=== PATIENT | male | born 1945 | race Caucasian/White ===

== ENCOUNTER 2022-02-17 12:38 | Outpatient (CLI) | payer OTHER, SELFPAY ==
[2022-02-17 13:18] LABS: Prostate Specific AG Urology 3.81 ng/mL (0-4)
== END 2022-02-17 12:39 | disposition home or self-care (01) ==
LOC: LAB 12:41
PROVIDERS: PCP Family Medicine; Visit Provider Urology
DX: R97.20 Elevated prostate specific antigen [PSA] (principal)
CPT/HCPCS: 36415; 84153

== ENCOUNTER → 2022-02-21 09:19 | Outpatient (BNVA) | payer OTHER, SELFPAY | PROVIDERS: PCP Family Medicine; Visit Provider Urology | DX: R97.20 Elevated prostate specific antigen [PSA] (principal); R39.9 Unspecified symptoms and signs involving the genitourinary system | CPT/HCPCS: 51798; 99203 ==

== ENCOUNTER 2022-06-01 10:07 | Emergency (ER) | payer OTHER, SELFPAY ==
[2022-06-01 10:10] VITALS: BP 99/60; PULSE 95; RESP 16; TEMP 37.1; O2SAT 95; BMI 25.8
--- NOTE | 2022-06-01 10:16 | PC.PHAR ---
[facility]
--- NOTE | 2022-06-01 10:17 | XRR_ITS ---
PROCEDURE INFORMATION: Exam: XR Chest Exam date and time: 06/01/2022 10:22 AM Age: 77 years old Clinical indication: Cough TECHNIQUE: Imaging protocol: Radiologic exam of the chest. Views: 1 view. COMPARISON: No relevant prior studies available. FINDINGS: Lungs: There is some blunting of left costophrenic angle that may be due to small pleural effusion and adjacent subsegmental atelectasis. Remaining lung trujillo are clear. There are scattered tiny pulmonary nodules both lung trujillo likely long-standing secondary to old granulomatous disease. Pleural spaces: Pleural surfaces: Right pleural surface is unremarkable. Heart/Mediastinum: Unremarkable. No cardiomegaly. Bones/joints: Unremarkable for age. XR/XR chest 1V portable [id number] IMPRESSION: 1. Blunting left costophrenic angle as discussed above. Recommend a follow-up radiographs in 1-2 months for further assessment.
--- NOTE | 2022-06-01 10:20 | W.ED.ABDPA2 ---
HPI - Abdominal Pain General: Chief Complaint: Abdominal Pain Stated Complaint: gi bleed Time Seen by Provider: 06/01/22 10:10 Source: patient and EMS Mode of arrival: EMS Limitations: no limitations History of Present Illness: See nursing assessment. Patient was brought in by EMS from [facility] after patient complained of nausea and vomiting since last night that included some coffee-ground emesis. Patient states he has had epigastric abdominal discomfort for past 2 days. He states last night he started having nausea and vomiting and last couple episodes he had coffee-ground emesis. Patient states he had a fever to 101 yesterday. He has had a nonproductive cough occasionally. Denies any diarrhea. Denies any melena. He has only minimal discomfort in his epigastrium now. Denies any shortness of breath or chest pain. Patient denies any past medical problems. Medications include baby aspirin daily, vitamin D twice a day and Aleve once a day. Past surgical history includes appendectomy. Patient does use smokeless tobacco. Denies cigarette use. Denies alcohol use. Associated Symptoms: Reports coffee ground emesis, heartburn, nausea and vomiting (Coffee-ground emesis); Denies chills, constipation, hematochezia and melena Review of Systems Const: Reports: other (Fever yesterday but no fever today); Denies: chills Eyes: Denies: change in vision ENMT: Denies: throat pain Card: Denies: chest pain or palpitations Resp: Denies: dyspnea or wheezing GI: Reports: abdominal pain (Mild epigastric), nausea, vomiting (Coffee-ground emesis), coffee ground emesis and heartburn; Denies: dysphagia, constipation, hematochezia, melena or mucus in stool : Denies: flank pain Musc: Denies: neck pain or back pain Skin/Breast: Denies: rash or pruritus Neuro: Denies: headache(s) or numbness in extremities Psych: Denies: anxiety [place]/Lymph: Denies: enlarged lymph nodes PFSH ED PFSH: Medical History Elevated prostate specific antigen [PSA] Family History Mother , at age 84 Alzheimer disease Depression Father , at age 74 Acute leukemia Social History Smoking and tobacco status: current every day smoker smokeless tobacco Smokeless tobacco user: chewing tobacco Alcohol intake: never Adopted: No Lives independently: Yes Marital status: service: Yes Current occupational status: retired Previous occupational history: [employer] [place] History of recent travel: No Supplemental [facility] Information: History of appendectomy Physical Exam Const: COMMON NORMALS: no acute distress, patient oriented x3, no limitations and well nourished GENERAL APPEARANCE: cooperative HENMT: COMMON NORMALS: normocephalic and atraumatic HEAD & SCALP: normocephalic and atraumatic FACE & SINUS: normal facial exam Eye: COMMON NORMALS: EOMs intact bilaterally Neck/C-Spine: COMMON NORMALS: full ROM, no lymphadenopathy, supple and no meningeal signs GENERAL: Yes normal visual inspection Lymph: LYMPHATIC: no lymphadenopathy noted Chest: COMMONS NORMALS: normal inspection of the chest and normal palpation of entire chest wall CHEST: No Ecchymosis present and No rash Resp: COMMON NORMALS: normal respiratory effort, No retractions and clear to auscultation bilaterally EFFORT & INSPECTION: No respiratory distress AUSCULTATION: clear to auscultation bilaterally Cardio: COMMON NORMALS: regular rate, regular rhythm and Peripheral pulses 2+ throughout JUGULAR VENOUS DISTENTION: no JVD RATE: regular rate RHYTHM: regular rhythm PERIPHERAL PULSES: Peripheral pulses 2+ throughout GI: COMMON NORMALS: Soft to palpation, No hepatosplenomegaly present, no masses and no bruits PALPATION: Yes Soft to palpation and Yes No hepatosplenomegaly present OTHER: Mild epigastric abdominal pain. No masses palpated. : COMMON NORMALS: Yes no CVA tenderness BLADDER/KIDNEY EXAM: Yes no CVA tenderness Back/Pelvis: COMMON NORMALS: no CVA tenderness Extremity: COMMON NORMALS: normal to inspection, full ROM and capillary refill normal Neuro: COMMON NORMALS: patient oriented x3, CN's II-XII intact bilaterally, no focal motor deficits and no sensory deficits noted MENINGEAL SIGNS: Yes no meningeal signs Psych: COMMON NORMALS: mental status grossly normal and Normal thought process present THOUGHT PROCESS: Normal thought process present Skin: COMMON NORMALS: no rashes or lesions noted and no wounds GENERAL SKIN EXAM: no rashes or lesions noted Course Vital Signs: Vital signs: Vital Signs Temperature 98.7 F 06/01/22 10:10 Pulse Rate 95 06/01/22 10:10 Respiratory Rate 16 06/01/22 10:10 Blood Pressure 99/60 06/01/22 10:10 Pulse Oximetry 95 06/01/22 10:10 Oxygen Delivery Me thod 06/01/22 10:10 MDM - Abdominal Pain Medical Decision Making Likely superficial gastritis. Possible peptic ulcer disease. Possible viral gastroenteritis. Medical Records 1415: I reviewed findings with patient including CT scans and lab work. Offered admission for further work-up. Patient declined admission and wants to go home. He states he will follow-up with Dr. Heart as an outpatient who is on-call for general surgery and gastroenterology. He likely needs EGD to evaluate his stomach. Patient reexamined. Abdomen is soft and nontender. He states he has no pain at all. He denies any nausea at this time. Patient also likely has superficial gastritis. Lab Data 06/01/22 10:25 Labs/Radiology: Radiology Impressions Chest X-Ray 06/01/22 10:17 IMPRESSION: 1. Blunting left costophrenic angle as discussed above. Recommend a follow-up radiographs in 1-2 months for further assessment. Chest/Abdomen/Pelvis CT 06/01/22 11:14 IMPRESSION: 1. Mild scattered bronchiolitis both lung trujillo and minor atelectatic changes left lung base. 2. Evidence of old granulomatous disease. IMPRESSION: 1. Findings inconclusive for low-grade mid small bowel obstruction as discussed above. Follow-up as clinically indicated. 2. 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 3. Additional chronic findings as above. COMMENTS: Consistent with the [employer]'s Incidental Findings Committee white paper (J Am Jenny Radiol 2018): Any incidental renal lesion less than 1 cm or classified as too small to characterize, or any incidental cystic renal lesion characterized as simple-appearing, is likely benign. No follow-up imaging is recommended for these lesions per consensus recommendations based on imaging criteria. Laboratory Results WBC 22.0 10^3/uL (4.0-10.0) H 06/01/22 10:25 RBC 5.60 10^6/uL (4.1-5.3) H 06/01/22 10:25 Hgb 17.8 g/dL (11.7-16.6) H 06/01/22 10:25 Hct 53.6 % (42.0-52.0) H 06/01/22 10:25 MCV 95.7 fl (80-94) H 06/01/22 10:25 MCH 31.8 pg (28.0-34.0) 06/01/22 10:25 MCHC 33.2 g/dL (30.0-36.0) 06/01/22 10:25 RDW 13.4 % (12.1-15.1) 06/01/22 10:25 Plt Count 300 10^3/cmm (130-400) 06/01/22 10:25 MPV 10.7 fL (7.4-10.4) H 06/01/22 10:25 Neut % (Auto) 86.8 % 06/01/22 10:25 Lymph % (Auto) 6.5 % 06/01/22 10:25 Jerome % (Auto) 5.8 % 06/01/22 10:25 Eos % (Auto) 0.0 % 06/01/22 10:25 Baso % (Auto) 0.2 % 06/01/22 10:25 Neut # (Auto) 19.05 10^3/uL (1.8-7.7) H 06/01/22 10:25 Lymph # (Auto) 1.4 10^3/uL (0.8-4.8) 06/01/22 10:25 Jerome # (Auto) 1.3 10^3/uL (0.2-0.9) H 06/01/22 10:25 Eos # (Auto) 0.0 10^3/uL (0.0-0.8) 06/01/22 10:25 Baso # (Auto) 0.0 10^3/uL (0.0-0.1) 06/01/22 10:25 Nucleated RBC % (auto) 0 % 06/01/22 10:25 Nucleated RBCs # 0.0 /100WBC 06/01/22 10:25 Sodium 140 mmol/L (136-145) 06/01/22 10:25 Potassium 4.1 mmol/L (3.5-5.1) 06/01/22 10:25 Chloride 101 mmol/L (98-107) 06/01/22 10:25 Carbon Dioxide 26 mmol/L (22-29) 06/01/22 10:25 Anion Gap 17.1 (5-19) 06/01/22 10:25 BUN 27 mg/dL (8-23) H 06/01/22 10:25 Creatinine 1.0 mg/dL (0.7-1.2) 06/01/22 10:25 GFR Calculation Not Reportable 06/01/22 10:25 Glucose 118 mg/dL (65-115) H 06/01/22 10:25 Calculated Osmolality 296 mOsm/kg (285-295) H 06/01/22 10:25 Calcium 9.1 mg/dL (8.5-10.5) 06/01/22 10:25 Total Bilirubin 1.1 mg/dL (0.15-1.2) 06/01/22 10:25 AST 21 U/L (0-40) 06/01/22 10:25 ALT 20 U/L (0-41) 06/01/22 10:25 Alkaline Phosphatase 100 U/L (40-130) 06/01/22 10:25 Total Protein 7.0 g/dL (6.6-8.7) 06/01/22 10:25 Albumin 4.3 g/dL (3.5-5.2) 06/01/22 10:25 Globulin 2.7 g/dL (1.3-4.6) 06/01/22 10:25 Lipase 33 U/L (13-60) 06/01/22 10:25 Influenza Type A Ag negative (Negative) 06/01/22 10:40 Influenza Type B Ag negative (Negative) 06/01/22 10:40 SARS-CoV-2 Ag (Rapid) Negative (Negative) 06/01/22 10:40 Blood Type A Positive 06/01/22 10:25 Rho(D) Type Positive 06/01/22 10:25 Antibody Screen Negative 06/01/22 10:25 Imaging Data CXR: My impression: Trace pleural effusion on the left. Otherwise clear CT Abd/Pel: Radiologist's impression: ROCEDURE INFORMATION: Exam: CT Chest With Contrast; Diagnostic Exam date and time: 06/01/2022 1:09 PM Age: 77 years old Clinical indication: Nausea; Shortness of breath; Additional info: L pleural effusion; Hematemesis; Epigastric abd pain TECHNIQUE: Imaging protocol: Diagnostic computed tomography of the chest with contrast. Radiation optimization: All CT scans at this facility use at least one of these dose optimization techniques: automated exposure control; mA and/or kV adjustment per patient size (includes targeted exams where dose is matched to clinical indication); or iterative reconstruction. Contrast material: OMNI 350; Contrast volume: 100 ml; Contrast route: INTRAVENOUS (IV);? COMPARISON: CR XR chest 1V portable [id number] 06/01/2022 10:22 AM RADIATION DOSE METRICS: Total DLP (mGy-cm): 1039.62 FINDINGS: Lungs: There are some scattered indistinct peribronchial nodular opacities within the perihilar regions of both lung trujillo likely inflammatory in nature representing scattered bronchiolitis. There are mild hypoventilatory changes posteriorly at the lung bases and minor atelectatic changes left lung base. There are scattered calcified nodules both lung trujillo secondary to old granulomatous disease. Pleural spaces: Unremarkable. No pneumothorax. No pleural effusion. Heart: Heart is not enlarged. No significant coronary artery calcifications detected. No significant pericardial effusion. Lymph nodes: There are some scattered granulomatous calcifications within the mediastinum intermixed with small noncalcified lymph nodes likely benign by size criteria. Vasculature: Unremarkable. No aortic aneurysm.? Bones/joints: Mild degenerative changes lower thoracic spine otherwise bony thorax is unremarkable. Soft tissues: Unremarkable. PROCEDURE INFORMATION: Exam: CT Abdomen And Pelvis With Contrast Exam date and time: 06/01/2022 1:09 PM Age: 77 years old Clinical indication: Nausea; Shortness of breath; Additional info: L pleural effusion; Hematemesis; Epigastric abd pain TECHNIQUE: Imaging protocol: Computed tomography of the abdomen and pelvis with contrast. Radiation optimization: All CT scans at this facility use at least one of these dose optimization techniques: automated exposure control; mA and/or kV adjustment per patient size (includes targeted exams where dose is matched to clinical indication); or iterative reconstruction. Contrast material: OMNI 350; Contrast volume: 100 ml; Contrast route: INTRAVENOUS (IV);? COMPARISON: CR XR chest 1V portable [id number] 06/01/2022 10:22 AM RADIATION DOSE METRICS: Total DLP (mGy-cm): 1069.32 FINDINGS: Lungs: There are scattered granulomatous calcifications within the spleen longstanding otherwise spleen is unremarkable. Liver: Mild fatty infiltration throughout the liver. No masses or enlargement detected. Gallbladder and bile ducts: Normal. No calcified stones. No ductal dilation. Pancreas: Unremarkable. Main pancreatic duct is not significantly dilated. Spleen: Normal. No splenomegaly. Adrenal glands: Normal. No mass. Kidneys and ureters: Small renal cortical cysts too small to adequately characterize but statistically likely benign. Stomach and bowel: Large cluster of mildly distended fluid-filled small bowel loops within the left abdominal cavity without a transition point that may be transient in nature or secondary to localized ileus. Low-grade small bowel obstruction felt less likely. Appendix: No evidence of appendicitis. Intraperitoneal space: See Stomach and bowel finding. Vasculature: Abdominal aorta and iliac vessels are diffusely calcified. There is no aortic aneurysm. Lymph nodes: Subtle mesenteric fat stranding with multiple small mesenteric lymph nodes within the mid abdomen suggestive of mild mesenteric panniculitis which is often idiopathic, asymptomatic. Urinary bladder: Unremarkable as visualized. Reproductive: Prostate gland is mildly enlarged. Bones/joints: Mild degenerative changes throughout the lower thoracic and lumbar spine. Solitary small radiolucent bone lesion L3 likely representing incidental hemangioma. Soft tissues: Small bilateral fatty inguinal hernias larger on the left. CT/CT chest abd pel w con* IMPRESSION: 1. Mild scattered bronchiolitis both lung trujillo and minor atelectatic changes left lung base. 2. Evidence of old granulomatous disease. ? ? IMPRESSION: 1. Findings inconclusive for low-grade mid small bowel obstruction as discussed above. Follow-up as clinically indicated. 2. 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 3. Additional chronic findings as above. ? COMMENTS: Consistent with the [employer]'s Incidental Findings Committee white paper (J Am Jenny Radiol 2018): Any incidental renal lesion less than 1 cm or classified as too small to characterize, or any incidental cystic renal lesion characterized as simple-appearing, is likely benign. No follow-up imaging is recommended for these lesions per consensus recommendations based on imaging criteria. ? Dictated By: Tay Tavarez MD Signed By: Tay Tavarez MD Signed Date/Time: 06/01/22 3676 Discharge Plan Discharge Patient Disposition: Home Clinical Impression: Ileus, Nausea & vomiting Gastritis Qualifiers: Gastritis type: superficial Chronicity: acute Gastritis bleeding: with bleeding Qualified Code(s): K29.01 - Acute gastritis with bleeding Condition: Stable Prescriptions: New Carafate 1 gram tablet 1 g PO Q6H Qty: 20 2RF Rx Instructions: for stomach ondansetron 4 mg tablet,disintegrating 4 mg PO Q6H PRN (Reason: nausea and vomiting) Qty: 10 1RF Protonix 40 mg tablet,delayed release (DR/EC) 40 mg PO BID Qty: 20 1RF Rx Instructions: For stomach. No Action aspirin [Adult Aspirin Regimen] 81 mg tablet,delayed release (DR/EC) 81 mg PO QAM lisinopril-hydrochlorothiazide 20-12.5 mg Tablet 2 tab PO QAM triamcinolone acetonide 0.1 % Cream 1 applic TOPICAL BID PRN (Reason: Rash) Pepcid 20 mg Tablet 20 mg PO DAILY PRN (Reason: Heartburn) Aleve 220 mg Tablet 220 mg PO QAM Vitamin D3 50 mcg (2,000 unit) Capsule 4,000 unit PO QAM Discharge Orders: Discharge ED (Routine); Ordered 06/01/22 Ordered By: Juan Denton Referrals: Javon Heart DO [Physician] - 4-7 days (For evaluation of upper GI bleeding) Rebecca Taylor MD [Primary Care Provider] - 1-3 days Discharge Activity: Increase activity as tolerated Patient Instructions: Gastritis (ED), Gastrointestinal Bleeding (ED), Diet for Stomach Ulcers and Gastritis (ED), Acute Nausea and Vomiting (ED), Ileus (ED) Activity Restrictions/Additional Instructions: Follow-up with general surgeon next week for recheck and possible scheduling of endoscopy to check your stomach for possible ulcer. Your small bowel is not functioning normally. Therefore, liquid diet only for the next 24 to 36 hours. Advance diet as tolerated. You did have some inflammation in your mesentery. Therefore, if symptoms worsen you must return to emergency room for recheck. Discontinue Pepcid and Aleve. Take only Tylenol for discomfort. Take Protonix and Carafate for your stomach. Take Zofran as needed for nausea. Avoid ibuprofen or aspirin. Coding Level of Care Code ED Commercial Maintenance Technician for Chg Fwd History Comprehensive Exam Comprehensive Medical Decision Making High Complexity
[2022-06-01 10:31] LABS: Basophils % 0.2 %; Hematocrit 53.6 % (42.0-52.0); Hemoglobin 17.8 g/dL (11.7-16.6); Lymphocytes # 1.4 10^3/uL (0.8-4.8); Lymphocytes % 6.5 %; Mean Corpuscular HGB Conc 33.2 g/dL (30.0-36.0); Mean Corpuscular Hemoglobin 31.8 pg (28.0-34.0); Mean Corpuscular Volume 95.7 fl (80-94); Mean Platelet Volume 10.7 fL (7.4-10.4); Monocytes # 1.3 10^3/uL (0.2-0.9); Monocytes % 5.8 %; Neutrophils # 19.05 10^3/uL (1.8-7.7); Neutrophils % 86.8 %; Nucleated Red Blood Cells % 0 %; Platelet Count 300 10^3/cmm (130-400); Red Cell Distribution Width 13.4 % (12.1-15.1)
--- NOTE | 2022-06-01 10:43 | PC.PHAR ---
PT STATES HE TAKES CARE OF HIS OWN MEDICATIONS-PT STATES HE DIDNT TAKE ANY MEDICATIONS TODAY
[2022-06-01] MEDS: pantoprazole 40 MG in sodium chloride 0.9% (plus) 100 ML 20 MG IV (10:47)
[2022-06-01] MEDS: pantoprazole 40 mg SDV 80 MG IVP (10:47)
[2022-06-01 10:56] LABS: Alanine Aminotransferase 20 U/L (0-41); Albumin Level 4.3 g/dL (3.5-5.2); Alkaline Phosphatase 100 U/L (40-130); Anion Gap 17.1 (5-19); Aspartate Amino Transferase 21 U/L (0-40); Blood Urea Nitrogen 27 mg/dL (8-23); Calcium 9.1 mg/dL (8.5-10.5); Carbon Dioxide 26 mmol/L (22-29); Chloride 101 mmol/L (98-107); Globulin 2.7 g/dL (1.3-4.6); Glucose 118 mg/dL (65-115); Lipase 33 U/L (13-60); Osmolality Calculated 296 mOsm/kg (285-295); Potassium 4.1 mmol/L (3.5-5.1); Sodium 140 mmol/L (136-145); Total Bilirubin 1.1 mg/dL (0.15-1.2)
--- NOTE | 2022-06-01 11:14 | CTR_ITS ---
PROCEDURE INFORMATION: Exam: CT Chest With Contrast; Diagnostic Exam date and time: 06/01/2022 1:09 PM Age: 77 years old Clinical indication: Nausea; Shortness of breath; Additional info: L pleural effusion; Hematemesis; Epigastric abd pain TECHNIQUE: Imaging protocol: Diagnostic computed tomography of the chest with contrast. Radiation optimization: All CT scans at this facility use at least one of these dose optimization techniques: automated exposure control; mA and/or kV adjustment per patient size (includes targeted exams where dose is matched to clinical indication); or iterative reconstruction. Contrast material: OMNI 350; Contrast volume: 100 ml; Contrast route: INTRAVENOUS (IV); COMPARISON: CR XR chest 1V portable [id number] 06/01/2022 10:22 AM RADIATION DOSE METRICS: Total DLP (mGy-cm): 1039.62 FINDINGS: Lungs: There are some scattered indistinct peribronchial nodular opacities within the perihilar regions of both lung trujillo likely inflammatory in nature representing scattered bronchiolitis. There are mild hypoventilatory changes posteriorly at the lung bases and minor atelectatic changes left lung base. There are scattered calcified nodules both lung trujillo secondary to old granulomatous disease. Pleural spaces: Unremarkable. No pneumothorax. No pleural effusion. Heart: Heart is not enlarged. No significant coronary artery calcifications detected. No significant pericardial effusion. Lymph nodes: There are some scattered granulomatous calcifications within the mediastinum intermixed with small noncalcified lymph nodes likely benign by size criteria. Vasculature: Unremarkable. No aortic aneurysm. Bones/joints: Mild degenerative changes lower thoracic spine otherwise bony thorax is unremarkable. Soft tissues: Unremarkable. PROCEDURE INFORMATION: Exam: CT Abdomen And Pelvis With Contrast Exam date and time: 06/01/2022 1:09 PM Age: 77 years old Clinical indication: Nausea; Shortness of breath; Additional info: L pleural effusion; Hematemesis; Epigastric abd pain TECHNIQUE: Imaging protocol: Computed tomography of the abdomen and pelvis with contrast. Radiation optimization: All CT scans at this facility use at least one of these dose optimization techniques: automated exposure control; mA and/or kV adjustment per patient size (includes targeted exams where dose is matched to clinical indication); or iterative reconstruction. Contrast material: OMNI 350; Contrast volume: 100 ml; Contrast route: INTRAVENOUS (IV); COMPARISON: CR XR chest 1V portable [id number] 06/01/2022 10:22 AM RADIATION DOSE METRICS: Total DLP (mGy-cm): 1069.32 FINDINGS: Lungs: There are scattered granulomatous calcifications within the spleen longstanding otherwise spleen is unremarkable. Liver: Mild fatty infiltration throughout the liver. No masses or enlargement detected. Gallbladder and bile ducts: Normal. No calcified stones. No ductal dilation. Pancreas: Unremarkable. Main pancreatic duct is not significantly dilated. Spleen: Normal. No splenomegaly. Adrenal glands: Normal. No mass. Kidneys and ureters: Small renal cortical cysts too small to adequately characterize but statistically likely benign. Stomach and bowel: Large cluster of mildly distended fluid-filled small bowel loops within the left abdominal cavity without a transition point that may be transient in nature or secondary to localized ileus. Low-grade small bowel obstruction felt less likely. Appendix: No evidence of appendicitis. Intraperitoneal space: See Stomach and bowel finding. Vasculature: Abdominal aorta and iliac vessels are diffusely calcified. There is no aortic aneurysm. Lymph nodes: Subtle mesenteric fat stranding with multiple small mesenteric lymph nodes within the mid abdomen suggestive of mild mesenteric panniculitis which is often idiopathic, asymptomatic. Urinary bladder: Unremarkable as visualized. Reproductive: Prostate gland is mildly enlarged. Bones/joints: Mild degenerative changes throughout the lower thoracic and lumbar spine. Solitary small radiolucent bone lesion L3 likely representing incidental hemangioma. Soft tissues: Small bilateral fatty inguinal hernias larger on the left. CT/CT chest abd pel w con* IMPRESSION: 1. Mild scattered bronchiolitis both lung trujillo and minor atelectatic changes left lung base. 2. Evidence of old granulomatous disease. IMPRESSION: 1. Findings inconclusive for low-grade mid small bowel obstruction as discussed above. Follow-up as clinically indicated. 2. 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 3. Additional chronic findings as above. COMMENTS: Consistent with the [employer]'s Incidental Findings Committee white paper (J Am Jenny Radiol 2018): Any incidental renal lesion less than 1 cm or classified as too small to characterize, or any incidental cystic renal lesion characterized as simple-appearing, is likely benign. No follow-up imaging is recommended for these lesions per consensus recommendations based on imaging criteria.
[2022-06-01 11:30] LABS: Influenza A by IFA negative (Negative); Influenza B by IFA negative (Negative)
[2022-06-01 11:50] LABS: SARS Covid-2 Antigen Negative (Negative)
[2022-06-01 13:20] VITALS: BP 141/69; PULSE 77; RESP 14; O2SAT 96
[2022-06-01 14:00] VITALS: BP 104/61; PULSE 68; RESP 15; O2SAT 93
[2022-06-01 15:00] VITALS: BP 135/72; PULSE 72; RESP 15; O2SAT 94
== END 2022-06-01 15:00 | disposition home or self-care (01) ==
PROVIDERS: Emergency Provider Family Medicine; PCP Family Medicine
DX: K29.01 Acute gastritis with bleeding (principal); K56.7 Ileus, unspecified; Z79.82 Long term (current) use of aspirin; Z20.822 Contact with and (suspected) exposure to COVID-19; F17.220 Nicotine dependence, chewing tobacco, uncomplicated
CPT/HCPCS: 36415; 71045; 71260; 74177; 80053; 83690; 85025; 86850; 86900; 87040; 87426; 87804; 96365; 96366; 96375; 99285; C9113; Q9967

== ENCOUNTER → 2022-06-20 11:07 | Outpatient (BNVA) | payer MEDICARE, SELFPAY | PROVIDERS: PCP Family Medicine; Visit Provider Surgery | DX: K21.9 Gastro-esophageal reflux disease without esophagitis (principal); Z12.11 Encounter for screening for malignant neoplasm of colon | CPT/HCPCS: 99024; 99203 ==

== ENCOUNTER 2022-07-05 06:17 | Day surgery (SDC) | payer MEDICARE, OTHER, SELFPAY ==
[2022-07-04 09:36] VITALS: BMI 25.8
[2022-07-05 06:39] VITALS: BP 181/91; PULSE 65; RESP 18; TEMP 36.8; O2SAT 96
[2022-07-05] MEDS: sodium chloride 0.9% 1,000 ML 30 ML IV (06:51)
--- NOTE | 2022-07-05 07:10 | ANES.PREANE2 ---
Pre-Anesthetic Assessment Height/Weight: Height 1.78 m Weight 81.647 kg Temp Pulse Resp BP Pulse Ox O2 Del Method 98.3 F 65 18 181/91 96 07/05/22 06:39 07/05/22 06:39 07/05/22 06:39 07/05/22 06:39 07/05/22 06:39 07/05/22 06:39 Preop Diagnosis: screening/GERD Operation Date: 07/05/22 08:00 Proposed Procedures p 48962 egd, [id number] colon Z12.11,K21.9(Not Applicable) - DO robi Spence Colonoscopy(Not Applicable) - Javon Heart DO Familial anesthetic complications: none Was Beta Amy taken within 24 hours: N/A Was Clonidine taken within 24 hours: N/A Last intake: Intake Last Liquid Date 07/04/22 Last Liquid Time 22:00 Last Solid Date 07/03/22 Last Solid Time 18:00 Social Tobacco (chew) and No alcohol Exam alert, oriented x 3, clear to auscultation bilaterally and regular rate & rhythm Airway Submandibular: within normal limits Cervical ROM: within normal limits Mallampati: Class II Dentition: chipped and full Comments: Comments: several missing Pulmonary None reported CV/HEM Hypertension None reported Hepatic None reported GI Gastroesophageal Reflux Disease (controlled) Metabolic None reported Musc/skel Lower Back Pain and Osteoarthritis/DJD Neuropsych None reported Anesthetic Plan ASA status: 2 Anesthesia: MAC Risk of > 500 ml blood loss (7ml/kg in children): No Medications/Allergies Home Medications Medication Instructions Recorded Confirmed Last Taken Type cholecalciferol (vitamin D3) 50 4,000 unit PO QAM 06/01/22 07/04/22 07/04/22 History mcg (2,000 unit) capsule (Vitamin D3) lisinopril 20 2 tab PO QAM 06/01/22 07/04/22 07/04/22 History mg-hydrochlorothiazide 12.5 mg tablet ondansetron 4 mg disintegrating 4 mg PO Q6H PRN nausea and 06/01/22 07/04/22 Unknown Rx tablet vomiting #10 tabs sucralfate 1 gram tablet (Carafate) 1 g PO Q6H #20 tabs 06/01/22 07/04/22 07/04/22 Rx triamcinolone acetonide 0.1 % 1 applic topical BID PRN Rash 06/01/22 07/04/22 Unknown History topical cream hydrocortisone 2.5 % topical cream 1 applic NC QID 3 weeks #30 grams 07/05/22 Unknown Rx with perineal applicator (Anusol-HC) pantoprazole 40 mg tablet,delayed 40 mg PO BID 6 weeks #84 tabs 07/05/22 Unknown Rx release (Protonix) Allergies Allergy/AdvReac Type Severity Reaction Status Date / Time No Known Allergies Allergy Verified 07/04/22 09:31 Current Medications Generic Name Dose Route Start Last Admin Trade Name Freq PRN Reason Stop Dose Admin Sodium Chloride 1,000 mls @ 30 mls/hr 07/05/22 06:30 07/05/22 06:51 Sodium Chloride 0.9% IV 07/06/22 06:29 30 mls/hr .Q24H KARLEY Administration PFSH Anesthesia Medical History Elevated prostate specific antigen [PSA] Surgical History History of appendectomy Family History Mother , at age 84 Alzheimer disease Depression Father , at age 74 Acute leukemia Social History Smoking and tobacco status: current every day smoker smokeless tobacco Smokeless tobacco user: chewing tobacco Alcohol intake: never Adopted: No Lives independently: Yes Marital status: service: Yes Current occupational status: retired Previous occupational history: [employer] [place] History of recent travel: No Data Anesthesia Cardiac Studies: No Data to Display
--- NOTE | 2022-07-05 08:16 | W.PM.OPSUD ---
Surgery/Procedure H&P Update DATE OF PROCEDURE: July 05, 2022 DATE H&P PERFORMED: 06/20/22 PREOP DIAGNOSIS: screening/GERD PLANNED PROCEDURE: Operation Date: 07/05/22 08:00 Proposed Procedures p 05171 egd, [id number] colon Z12.11,K21.9(Not Applicable) - DO robi Spence Colonoscopy(Not Applicable) - Javon Heart DO
[2022-07-05 08:42] VITALS: BP 114/56; PULSE 57; RESP 16; TEMP 36.7; O2SAT 94
[2022-07-05 08:47] VITALS: BP 114/63; PULSE 52; RESP 16; O2SAT 97
[2022-07-05 08:57] VITALS: BP 125/82; PULSE 59; RESP 18; O2SAT 97
--- NOTE | 2022-07-05 13:47 | ANE.PACU2 ---
Inpatient post-anesthesia follow up: Airway intact: Yes Vital signs: Temperature 98.1 F Pulse Rate 59 Respiratory Rate 18 Blood Pressure 125/82 Pulse Oximetry 97 Oxygen Delivery Me thod Room Air Oxygen Flow Rate Fraction of Inspir ed Oxygen Hydration adequate: Yes Nausea and vomiting: No Pain level: 2 Mental status: Baseline
== END 2022-07-05 09:22 | disposition home or self-care (01) ==
PROVIDERS: PCP Family Medicine; Visit Provider Surgery
PROC: 0DJ08ZZ Inspection of Upper Intestinal Tract, Via Natural or Artificial Opening Endoscopic (ICD-10-PCS; CPT 43235; principal; 2022-07-05 08:00)
PROC: 0DJD8ZZ Inspection of Lower Intestinal Tract, Via Natural or Artificial Opening Endoscopic (ICD-10-PCS; CPT 45378; 2022-07-05 08:00)
DX: Z12.11 Encounter for screening for malignant neoplasm of colon (principal); K21.9 Gastro-esophageal reflux disease without esophagitis; K64.8 Other hemorrhoids; F17.220 Nicotine dependence, chewing tobacco, uncomplicated; K29.80 Duodenitis without bleeding; K29.50 Unspecified chronic gastritis without bleeding; B96.81 Helicobacter pylori [H. pylori] as the cause of diseases classified elsewhere
CPT/HCPCS: 43239; 45378; 88305; G0121; J2704; J7030

== ENCOUNTER → 2022-07-27 15:25 | Outpatient (BNVA) | payer MEDICARE, OTHER, SELFPAY | PROVIDERS: PCP Family Medicine; Visit Provider Surgery | DX: Z09 Encounter for follow-up examination after completed treatment for conditions other than malignant neoplasm (principal); K29.70 Gastritis, unspecified, without bleeding; B96.81 Helicobacter pylori [H. pylori] as the cause of diseases classified elsewhere; K64.8 Other hemorrhoids; K26.9 Duodenal ulcer, unspecified as acute or chronic, without hemorrhage or perforation | CPT/HCPCS: 99212 ==

== ENCOUNTER → 2022-08-10 17:28 | Outpatient (BNVA) | payer MEDICARE, OTHER, SELFPAY | PROVIDERS: PCP Family Medicine; Visit Provider Surgery | DX: Z09 Encounter for follow-up examination after completed treatment for conditions other than malignant neoplasm (principal); K29.70 Gastritis, unspecified, without bleeding; B96.81 Helicobacter pylori [H. pylori] as the cause of diseases classified elsewhere | CPT/HCPCS: 99212 ==

== ENCOUNTER 2022-08-25 07:27 | Observation (INO) | payer OTHER, SELFPAY ==
[2022-08-25] VITALS (10 sets, daily range): BP systolic 120–150; BP diastolic 61–90; PULSE 66–93; RESP 17–21; TEMP 36.6–36.7; O2SAT 91–99; BMI 26.1
--- NOTE | 2022-08-25 07:49 | PC.NURSE ---
pt reports to the ER with c/o coffee ground emesis and dark colored diarrhea x2 days. pt reports associated lightheadedness but denies dizziness or abdominal pain. speech is clear, respirations even and unlabored. lung sounds clear throughout. skin pink/warm/dry. cap refill is 3 seconds.
--- NOTE | 2022-08-25 07:53 | ECG_ITS ---
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 Measurements Intervals [place] Rate: 66 P: 21 MD: 218 QRS: -16 QRSD: 75 T: 123 QT: 382 QTc: 401 Interpretive Statements SINUS RHYTHM WITH SINUS ARRHYTHMIA WITH FIRST DEGREE AV BLOCK MODERATE T-WAVE ABNORMALITY, CONSIDER LATERAL ISCHEMIA [-0.1+ mV T-WAVE IN I/aVL/V5/V6] No previous ECG available for comparison Electronically Signed On 08-25-2022 15:12:35 [employer] SAL[employer]ENT by Abel Braden M.D. [id number]
--- NOTE | 2022-08-25 07:53 | XR_ITS ---
WS: [id number] Portable AP upright chest, 08/25/2022 Clinical Data: dyspnea/cough Comparison: Portable chest, 06/01/2022 Findings: No nodules, masses or effusions are seen. The heart is normal. The pulmonary vascularity is not increased. No pneumonia or pneumothorax is seen. The left costophrenic angle shows blunting prob ably from fibrotic change. The aortic arch and descending thoracic aorta show calcification and tortu osity. There are monitor leads on the chest wall. XR/XR chest 1V portable [id number] Impression: Atherosclerosis.
--- NOTE | 2022-08-25 07:53 | CT_ITS ---
WS: [id number] CT ABDOMEN PELVIS TECHNIQUE: Contrast-enhanced CT of the abdomen and pelvis with coronal and sagittal reformatted image s. CLINICAL INFORMATION: abd pain COMPARISON: CT June 01, 2022 DLP: 659.[address] scans at [facility] use at least one of these dose optimization techniques: automated e xposure control; mA and/or kV adjustment per patient size (includes targeted exams where dose is matc hed to clinical indication); or iterative reconstruction. FINDINGS: Mild diffuse fatty infiltration liver. Normal portal vein and splenic vein. Splenic granulomas. Small esophageal hiatal hernia. Fluid distended stomach with air-fluid level. Gastritis with duodenitis. B ibasilar atelectasis. Normal portal vein and splenic vein. Gallbladder appears normal. Normal pancrea tic parenchymal enhancement. Adrenal glands are normal. No hydronephrosis. Incidental bilateral renal cysts. Previously enhancing enlarged prostate measuring 4.8 cm. Normal sigmoid colon. A few air-flui d levels in normal caliber colon. Normal caliber abdominal aorta. Mild aortic calcification. Celiac and SMA are patent. Normal caliber fluid-filled loops of small bowel. No evidence of small or large bowel obstruction. Small bowel diste ntion improved compared to June 01, 2022. Enlarged lymph nodes in the central mesentery compatibl e with mesenteric panniculitis with mild adore mesentery unchanged. CT/CT abdomen pelvis w con* [id number] IMPRESSION: 1. No evidence of high-grade small or large bowel obstruction. 2. Fluid-filled enhancing small bowel bowel loops without evidence of obstruct ion. Small bowel loops are less distended compared to June 01, 2022. Recomm end correlation for small bowel enteritis 3. Colon is normal caliber with scattered fluid and air-fluid levels in the tr ansverse colon. 4. Enlarged prostate measuring 4.8 cm. Recommend correlation PSA. 5. Small esophageal hiatal hernia. 6. Fluid distended stomach with air-fluid levels with submucosal enhancement c ompatible with gastritis and duodenitis. 7. Stable previously described mesenteric panniculitis.
--- NOTE | 2022-08-25 07:53 | ED_ITS ---
HPI - Nausea/Vomiting/Diarrhea General: Chief complaint: Nausea/Vomiting/Diarrhea Stated complaint: Rectal bleeding Time Seen by Provider: 08/25/22 07:30 Source: patient Mode of arrival: ambulatory History of Present Illness: 77-year-old male presents emergency room with complaints of hematemesis and black tarry stools over the last couple of days. May 2022 was admitted for GI bleed, the following month had an EGD and col onoscopy is found to have H. pylori when endoscopy was completed.. MD elicited complaint: nausea and vomiting Pertinent past history: other Onset (ago): day(s) (1) Description of diarrhea: black tarry Associated nausea: Yes Associated abdominal pain: Yes Location of pain: Epigastric Pain consistency: constant Severity: moderate Quality: cramping Exacerbating factors: none Relieving factors: none Associated symtoms: Reports nausea and weakness; Denies anxiety, bloating, change in vision, chest pain, cough, diaphoresis, decreased urine output, dizziness, dysuria, epistaxis, fatigue, fecal incontinence, fevers/chills, headache(s), anorexia, malaise, myalgias, numbness, palpitations, rash, short of breath, syncope, tenesmus or tinnitus Review of Systems Const: Denies: fever(s), chills, fatigue, malaise or diaphoresis Eyes: Denies: change in vision ENMT: Denies: tinnitus or epistaxis Card: Denies: chest pain, palpitations or syncope Resp: Denies: dyspnea, productive cough or non-productive cough GI: Reports: abdominal pain, nausea, vomiting, coffee ground emesis and melena; Denies: bloating or fecal incontinence : Denies: dysuria, urinary frequency or urinary urgency Skin/Breast: Denies: rash or pruritus Neuro: Denies: headache(s) or dizziness Psych: Denies: anxiety PFSH ED PFSH: Medical History (Updated 08/29/22 @ 05:53 by Yfn Contreras DO) Duodenal ulcer Elevated prostate specific antigen [PSA] GERD (gastroesophageal reflux disease) Hypertension Internal hemorrhoids Lower urinary tract symptoms (LUTS) Surgical History History of appendectomy Family History Mother , at age 84 Alzheimer disease Depression Father , at age 74 Acute leukemia Social History Smoking and tobacco status: current every day smoker smokeless tobacco Smokeless tobacco user: chewing tobacco Alcohol intake: never Adopted: No Lives independently: Yes Marital status: service: Yes Current occupational status: retired Previous [place] [employer] [place] Physical Exam Const: GENERAL APPEARANCE: cooperative and comfortable ORIENTATION/CONSCIOUSNESS: Yes awake, Yes oriented to person, Yes oriented to place and Yes oriented to time HENMT: COMMON NORMALS: normocephalic, atraumatic and hearing grossly normal bilaterally HEAD & SCALP: normocephalic and atraumatic Resp: COMMON NORMALS: normal respiratory effort, No retractions, No use of accessory muscles and clear to auscultation bilaterally AUSCULTATION: clear to auscultation bilaterally Cardio: COMMON NORMALS: regular rate, regular rhythm and No murmurs present (Cardio) RATE: regular rate RHYTHM: regular rhythm GI: COMMON NORMALS: Soft to palpation and No hepatosplenomegaly present AUSCULTATION: Yes normoactive bowel sounds PALPATION: Yes Soft to palpation, No Tenderness to palpation present (GI), No Guarding due to palpation present (GI) and Yes No hepatosplenomegaly present OTHER: Rectal exam shows blood-tinged stool markedly Hemoccult positive on testing Extremity: COMMON NORMALS: normal to inspection, capillary refill normal, no clubbing, cyanosis or edema, no calf tenderness and no pedal edema Neuro: SENSORIUM/ORIENTATION: Yes oriented to person, Yes oriented to place and Yes oriented to time Skin: COMMON NORMALS: no rashes or lesions noted GENERAL SKIN EXAM: no rashes or lesions noted Course Vital Signs: Vital signs: Vital Signs Temperature 98.4 F 08/26/22 11:21 Pulse Rate 59 L 08/26/22 11:21 Respiratory Rate 16 08/26/22 11:21 Blood Pressure 109/63 08/26/22 11:21 Pulse Oximetry 93 08/26/22 11:21 Oxygen Delivery Me thod 08/26/22 07:40 MDM - Nausea/Vomiting/Diarrhea Medical Decision Making Given his history we will place patient on observation. His hemoglobin is stable but he states he has been passing blood for several days now. Monitor his hemoglobins started on PPIs. Discussed with hospitalist observation orders written Medical Records I reviewed the patient's medical records. Lab Data I reviewed the patient's lab results. 08/25/22 08:03 08/25/22 08:03 Radiology Impressions Abdomen/Pelvis CT 08/25/22 07:53 IMPRESSION: 1. No evidence of high-grade small or large bowel obstruction. 2. Fluid-filled enhancing small bowel bowel loops without evidence of obstruction. Small bowel loops are less distended compared to June 01, 2022. Recommend correlation for small bowel enteritis 3. Colon is normal caliber with scattered fluid and air-fluid levels in the transverse colon. 4. Enlarged prostate measuring 4.8 cm. Recommend correlation PSA. 5. Small esophageal hiatal hernia. 6. Fluid distended stomach with air-fluid levels with submucosal enhancement compatible with gastritis and duodenitis. 7. Stable previously described mesenteric panniculitis. Chest X-Ray 08/25/22 07:53 Impression: Atherosclerosis. Laboratory Results WBC 10.4 10^3/uL (4.0-10.0) H 08/25/22 08:03 RBC 5.72 10^6/uL (4.1-5.3) H 08/25/22 08:03 Hgb 17.7 g/dL (11.7-16.6) H 08/25/22 08:03 Hct 54.0 % (42.0-52.0) H 08/25/22 08:03 MCV 94.4 fl (80-94) H 08/25/22 08:03 MCH 30.9 pg (28.0-34.0) 08/25/22 08:03 MCHC 32.8 g/dL (30.0-36.0) 08/25/22 08:03 RDW 12.9 % (12.1-15.1) 08/25/22 08:03 Plt Count 324 10^3/cmm (130-400) 08/25/22 08:03 MPV 10.1 fL (7.4-10.4) 08/25/22 08:03 Neut % (Auto) 78.8 % 08/25/22 08:03 Lymph % (Auto) 12.7 % 08/25/22 08:03 [place] % (Auto) 6.7 % 08/25/22 08:03 Eos % (Auto) 0.5 % 08/25/22 08:03 Baso % (Auto) 0.4 % 08/25/22 08:03 Neut # (Auto) 8.22 10^3/uL (1.8-7.7) H 08/25/22 08:03 Lymph # (Auto) 1.3 10^3/uL (0.8-4.8) 08/25/22 08:03 [place] # (Auto) 0.7 10^3/uL (0.2-0.9) 08/25/22 08:03 Eos # (Auto) 0.1 10^3/uL (0.0-0.8) 08/25/22 08:03 Baso # (Auto) 0.0 10^3/uL (0.0-0.1) 08/25/22 08:03 Nucleated RBC % (auto) 0 % 08/25/22 08:03 Nucleated RBCs # 0.0 /100WBC 08/25/22 08:03 PT 15.00 SECONDS (12.1-14.9) H 08/25/22 08:03 INR 1.15 (0.8-1.2) 08/25/22 08:03 APTT 28.0 SECONDS (23.9-36.7) 08/25/22 08:03 Sodium 136 mmol/L (136-145) 08/25/22 08:03 Potassium 3.7 mmol/L (3.5-5.1) 08/25/22 08:03 Chloride 98 mmol/L (98-107) 08/25/22 08:03 Carbon Dioxide 26 mmol/L (22-29) 08/25/22 08:03 Anion Gap 15.7 (5-19) 08/25/22 08:03 BUN 25 mg/dL (8-23) H 08/25/22 08:03 Creatinine 1.1 mg/dL (0.7-1.2) 08/25/22 08:03 GFR Calculation Not Reportable 08/25/22 08:03 Glucose 120 mg/dL (65-115) H 08/25/22 08:03 Calculated Osmolality 288 mOsm/kg (285-295) 08/25/22 08:03 Calcium 9.1 mg/dL (8.5-10.5) 08/25/22 08:03 Iron 50 ug/dL (59-158) L 08/25/22 08:03 TIBC 241 mcg/dl 08/25/22 08:03 % Saturation 20.7 % (20-50) 08/25/22 08:03 Unsat Iron Binding 191 ug/dL (112-347) 08/25/22 08:03 Total Bilirubin 0.7 mg/dL (0.15-1.2) 08/25/22 08:03 AST 23 U/L (0-40) 08/25/22 08:03 ALT 19 U/L (0-41) 08/25/22 08:03 Alkaline Phosphatase 149 U/L (40-130) H 08/25/22 08:03 Total Protein 7.3 g/dL (6.6-8.7) 08/25/22 08:03 Albumin 4.3 g/dL (3.5-5.2) 08/25/22 08:03 Globulin 3.0 g/dL (1.3-4.6) 08/25/22 08:03 Vitamin B12 253 pg/mL (232-1245) 08/25/22 08:03 Folate 13.7 ng/mL (4.5-32.2) 08/25/22 08:03 TSH 1.83 uIU/mL (0.27-4.20) 08/25/22 08:03 H. pylori IgG Antibody Negative (Negative) 08/25/22 08:03 Blood Type A Positive 08/25/22 08:03 Rho(D) Type Positive 08/25/22 08:03 Antibody Screen Negative 08/25/22 08:03 Discharge Plan Discharge Patient Disposition: Admitted As Inpatient Admit Provider: Vito James Clinical Impression: Hematemesis, Duodenal ulcer, Melena, GERD (gastroesophageal reflux disease) Condition: Stable Discharge Diet: Usual diet Discharge Activity: Resume usual activity and Increase activity as tolerated Coding Level of Care Code ED Veneer Clipper for Janna Sandoval
[2022-08-25 08:25] LABS: Basophils % 0.4 %; Eosinophils # 0.1 10^3/uL (0.0-0.8); Eosinophils % 0.5 %; Hemoglobin 17.7 g/dL (11.7-16.6); Lymphocytes # 1.3 10^3/uL (0.8-4.8); Lymphocytes % 12.7 %; Mean Corpuscular HGB Conc 32.8 g/dL (30.0-36.0); Mean Corpuscular Hemoglobin 30.9 pg (28.0-34.0); Mean Corpuscular Volume 94.4 fl (80-94); Mean Platelet Volume 10.1 fL (7.4-10.4); Monocytes # 0.7 10^3/uL (0.2-0.9); Monocytes % 6.7 %; Neutrophils # 8.22 10^3/uL (1.8-7.7); Neutrophils % 78.8 %; Nucleated Red Blood Cells % 0 %; Platelet Count 324 10^3/cmm (130-400); Red Blood Count 5.72 10^6/uL (4.1-5.3); Red Cell Distribution Width 12.9 % (12.1-15.1); White Blood Count 10.4 10^3/uL (4.0-10.0)
[2022-08-25] MEDS: pantoprazole 40 mg SDV IVP ×2 (08:38→16:14)
[2022-08-25 08:44] LABS: Alanine Aminotransferase 19 U/L (0-41); Albumin Level 4.3 g/dL (3.5-5.2); Alkaline Phosphatase 149 U/L (40-130); Anion Gap 15.7 (5-19); Aspartate Amino Transferase 23 U/L (0-40); Blood Urea Nitrogen 25 mg/dL (8-23); Calcium 9.1 mg/dL (8.5-10.5); Carbon Dioxide 26 mmol/L (22-29); Chloride 98 mmol/L (98-107); Creatinine Clr Calc Pharmacy 61.1081; Glucose 120 mg/dL (65-115); Osmolality Calculated 288 mOsm/kg (285-295); Potassium 3.7 mmol/L (3.5-5.1); Sodium 136 mmol/L (136-145); Total Bilirubin 0.7 mg/dL (0.15-1.2); Total Protein 7.3 g/dL (6.6-8.7)
[2022-08-25 09:18] LABS: INR 1.15 (0.8-1.2)
--- NOTE | 2022-08-25 15:09 | P.HP_ITS ---
Providers/Chief Complaint Primary Care Provider: Rebecca Taylor MD Chief Complaint: Rectal bleeding History of Present Illness Montez Garrett is a 77 year old male with past medical history of H. pylori gastritis, upper GI bleed in May for which he underwent endoscopy and colonoscopy in June 2022 which showed a healed gastric duodenal ulcer presents to the ER today with complaint of black tarry bowel movements and hematemesis which started yesterday evening along with mild dizziness. Patient states episodes happen once or twice. He has not been taking [id number] Aleve or aspirin since May 2022 when he first had the GI bleed. He denies smoking or consumption of alcohol. Patient was tested positive for H. pylori gastritis and it seems was treated for 14 days with clarithromycin and doxycycline and PPI. On examination patient laying comfortably in bed, hemodynamically stable. Blood work in the ER showed a white count 10,000, hemoglobin of 17.7 which seems to be his baseline, creatinine of 1.1, sodium 146. Review of Systems General: Reports: 10 or more systems reviewed and unremarkable except in HPI and below Const: Denies: fever(s), chills, body aches, change in appetite, change in weight, malaise, night sweats, diaphoresis, change in sleep pattern, daytime sleepiness or snoring Eyes: Denies: change in vision, blurry vision, photophobia, eye discomfort or eye discharge ENMT: Denies: throat pain, enlarged tonsils, hoarseness, mouth pain, oral sores, dry mouth, tinnitus, nasal congestion or post nasal drip Card: Denies: chest pain, palpitations, irregular heart rhythm, edema, swelling of feet/ankles, lightheadedness, syncope, pre-syncope, dyspnea on exertion, orthopnea, leg pain with exertion or acrocyanosis Resp: Denies: dyspnea, productive cough, non-productive cough, wheezing, stridor, pain on inspiration, change in phlegm color, hemoptysis or chest congestion GI: Denies: abdominal pain, nausea, vomiting, hematemesis, coffee ground emesis, dysphagia, heartburn, diarrhea, constipation, bloating, GI cramping, change in bowel habits, pain on defecation, hematochezia or melena : Denies: flank pain, difficulty urinating, dysuria, urinary frequency, urinary urgency, urinary hesitancy, urinary dribbling, difficulty starting urination, change in urine stream, nocturia or hematuria Musc: Denies: neck pain, back pain, extremity pain, joint pain, joint swelling, joint redness, joint stiffness or limited range of motion Neuro: Denies: headache(s), numbness in extremities, weakness in extremities, sensory changes, lack of coordination, difficulty walking, frequent falls, dizziness, vertigo, confusion, Slurred speech present, difficulty communicating thoughts or seizure-like activity Psych: Denies: anxiety, depression, mood swings, panic attacks, hopelessness or irritability Endo: Denies: polyuria, polydipsia, tired all the time, cold intolerance, excessive sweating, flushing or heat intolerance [place]/Lymph: Denies: easy bruising or easy bleeding All/Imm: Denies: tongue swelling, facial swelling or acute wheezing Medications/Allergies Home Medications Medication Instructions Recorded Confirmed Last Taken Type cholecalciferol (vitamin D3) 50 4,000 unit PO QAM 06/01/22 08/25/22 08/24/22 History mcg (2,000 unit) capsule (Vitamin D3) lisinopril 20 2 tab PO QAM 06/01/22 08/25/22 08/24/22 History mg-hydrochlorothiazide 12.5 mg tablet ondansetron 4 mg disintegrating 4 mg PO Q6H PRN nausea and 06/01/22 08/25/22 Rx tablet vomiting #10 tabs Allergies Allergy/AdvReac Type Severity Reaction Status Date / Time No Known Allergies Allergy Verified 08/25/22 10:36 PFSH Acute PFSH: Medical History (Updated 08/25/22 @ 15:16 by Vito James MD) Duodenal ulcer Elevated prostate specific antigen [PSA] GERD (gastroesophageal reflux disease) Hypertension Internal hemorrhoids Lower urinary tract symptoms (LUTS) Surgical History History of appendectomy Family History Mother , at age 84 Alzheimer disease Depression Father , at age 74 Acute leukemia Social History Smoking and tobacco status: current every day smoker smokeless tobacco Smokeless tobacco user: chewing tobacco Alcohol intake: never Adopted: No Lives independently: Yes Marital status: service: Yes Current occupational status: retired Previous occupational history: [employer] [place] Vitals/I&O/Wt Last Vital Signs Temp 98.1 F 08/25/22 07:29 Pulse 68 08/25/22 14:30 Resp 17 08/25/22 14:30 BP 128/76 08/25/22 14:30 Pulse Ox 92 08/25/22 14:30 O2 Del Method 08/25/22 07:29 Weight last 48 hrs Weight 82.554 kg Physical Exam Narrative: General: No acute distress, AO x3 HEENT: PERRLA, pupils bilaterally equal and reactive Chest: Normal vesicular breath sounds, no added sounds, equal good air entry bilaterally CVS: S1-S2 regular, no murmurs, no tachycardia, no gallops, no rubs Abdomen: Soft, nontender, no organomegaly, bowel sounds present Neuro: No focal deficits, no facial deformity, AO x3, power 5/5 in all limbs Data 08/25/22 08:03 08/25/22 08:03 A&P Assessment and plan (1) Hematemesis: (2) Melena: (3) Duodenal ulcer: (4) Helicobacter pylori gastritis: (5) Internal hemorrhoids: (6) Hypertension: Goal blood pressure less than 140/90 mmHg. Continue with home dose of lisinopril. Hold off on hydrochlorothiazide. Plan 77-year-old gentleman with recent history of upper GI bleed with EGD and colonoscopy in June consistent with healed duodenal ulcer along with H. pylori presents to the ER again today with episode of hematemesis and melena. Hematemesis/melena: Hemoglobin seems to be stable. Monitor hemoglobin every 12 hourly. Start on normal saline at 75 cc/h. Clear liquid diet. Protonix 40 mg twice daily along with Carafate before meals and at bedtime. Patient has history of H. pylori gastritis. Seems to have been treated for 2 weeks with clarithromycin, amoxicillin and PPI. Repeat H. pylori antibody. Full code. Protonix OPD prophylaxis SCDs for DVT prophylaxis Attestations Medical Necessity Statement*: Admission for less than 2 midnights under o bservation for possible hematemesis and melena while monitor hemoglobin Diagnoses Hematemesis K92.0 Melena K92.1 Duodenal ulcer K26.9 Helicobacter pylori gastritis K29.70; B96.81 Internal hemorrhoids K64.8 Hypertension I10
[2022-08-25] MEDS: sodium chloride 0.9% 1,000 ML 100 ML IV (16:14)
[2022-08-25 16:48] LABS: Iron 50 ug/dL (59-158); Percent Saturation 20.7 % (20-50); Thyroid Stimulating Hormone 1.83 uIU/mL (0.27-4.20); Total Iron Binding Capacity 241 mcg/dl; Unsaturated Iron Binding 191 ug/dL (112-347); Vitamin B12 253 pg/mL (232-1245)
[2022-08-25 16:51] LABS: Folate Level 13.7 ng/mL (4.5-32.2)
[2022-08-25] MEDS: ferrous gluconate 324 mg Tablet PO (17:41)
[2022-08-25 19:02] LABS: H. Pylori IgG Antibody Negative (Negative)
[2022-08-26] VITALS: BP 123/63; PULSE 64; RESP 20; TEMP 37.5; O2SAT 92
[2022-08-26] MEDS: sodium chloride 0.9% 1,000 ML 100 ML IV (01:08)
[2022-08-26] MEDS: pantoprazole 40 mg SDV IVP (03:00)
[2022-08-26 03:25] LABS: Basophils % 0.5 %; Eosinophils # 0.2 10^3/uL (0.0-0.8); Eosinophils % 2.4 %; Hematocrit 44.5 % (42.0-52.0); Hemoglobin 14.3 g/dL (11.7-16.6); Lymphocytes # 1.8 10^3/uL (0.8-4.8); Lymphocytes % 23.2 %; Mean Corpuscular HGB Conc 32.1 g/dL (30.0-36.0); Mean Corpuscular Hemoglobin 30.4 pg (28.0-34.0); Mean Corpuscular Volume 94.5 fl (80-94); Mean Platelet Volume 10.4 fL (7.4-10.4); Monocytes % 12.2 %; Neutrophils # 4.77 10^3/uL (1.8-7.7); Neutrophils % 60.9 %; Nucleated Red Blood Cells % 0 %; Platelet Count 239 10^3/cmm (130-400); Red Blood Count 4.71 10^6/uL (4.1-5.3); Red Cell Distribution Width 12.8 % (12.1-15.1); White Blood Count 7.8 10^3/uL (4.0-10.0)
[2022-08-26 03:41] LABS: Estmated Average Glucose 103; Hemoglobin A1C 5.2 % (4.0-6.0)
[2022-08-26 03:50] VITALS: BP 106/53; PULSE 56; RESP 15; TEMP 36.7; O2SAT 92
[2022-08-26 03:54] LABS: Alanine Aminotransferase 15 U/L (0-41); Albumin Level 3.1 g/dL (3.5-5.2); Alkaline Phosphatase 101 U/L (40-130); Anion Gap 13.6 (5-19); Aspartate Amino Transferase 18 U/L (0-40); Blood Urea Nitrogen 18 mg/dL (8-23); Carbon Dioxide 25 mmol/L (22-29); Chloride 103 mmol/L (98-107); Cholesterol 132 mg/dL (0-200); Globulin 2.5 g/dL (1.3-4.6); Glucose 87 mg/dL (65-115); HDL Cholesterol 22 mg/dL (60-100); LDL Cholesterol Calculated 87 mg/dL (50-129); Osmolality Calculated 287 mOsm/kg (285-295); Potassium 3.6 mmol/L (3.5-5.1); Sodium 138 mmol/L (136-145); Total Bilirubin 0.5 mg/dL (0.15-1.2); Total Protein 5.6 g/dL (6.6-8.7); Triglycerides 113 mg/dL (0-150); VLDL Cholestrol Calculation 23 mg/dL (0-30)
[2022-08-26 05:13] VITALS: PULSE 57
[2022-08-26 07:40] VITALS: BP 109/63; PULSE 59; RESP 16; TEMP 36.9; O2SAT 93
[2022-08-26] MEDS: ferrous gluconate 324 mg Tablet PO (08:38)
--- NOTE | 2022-08-26 10:39 | PM.DCS ---
Discharge Providers Date of Admission: 08/25/22 15:47 Date of Discharge: August 26, 2022 Attending Provider at Admission: Vito James MD Attending Provider at Discharge: Vito James MD Primary Care Provider: Rebecca Taylor MD Diagnoses at Discharge Discharge Diagnosis (1) Hematemesis: Status: Acute (2) Melena: Status: Acute (3) Duodenal ulcer: Status: Acute (4) Helicobacter pylori gastritis: Status: Acute (5) Internal hemorrhoids: Status: Acute (6) Hypertension: Status: Acute Reason for Visit Reason for Visit: Rectal bleeding Hospital Course Hospital Course tasia Garrett is a 77 year old male with past medical history of H. pylori gastritis, upper GI bleed in May for which he underwent endoscopy and colonoscopy in June 2022 which showed a healed gastric duodenal ulcer presents to the ER today with complaint of black tarry bowel movements and hematemesis which started yesterday evening along with mild dizziness.? Patient states episodes happen once or twice.? He has not been taking [id number] Aleve or aspirin since May 2022 when he first had the GI bleed.? He denies smoking or consumption of alcohol. Patient was tested positive for H. pylori gastritis and it seems was treated for 14 days with clarithromycin and doxycycline and PPI. On examination patient laying comfortably in bed, hemodynamically stable.? Blood work in the ER showed a white count 10,000, hemoglobin of 17.7 which seems to be his baseline, creatinine of 1.1, sodium 146. Patient was brought to the hospital further evaluation and management under observation for possible hematemesis and melena. He did not have any further episodes. His hemoglobin remained stable. He was started on PPI therapy and Carafate. He is been discharged in medically stable condition on Protonix twice daily for next 2 weeks after which he is to take Protonix once daily along with Carafate before meals and at bedtime for next 4 weeks. He is to follow-up with his primary care provider within next 1 week for repeat CBC. Physical Exam Narrative: General: No acute distress, AO x3 HEENT: PERRLA, pupils bilaterally equal and reactive Chest: Normal vesicular breath sounds, no added sounds, equal good air entry bilaterally CVS: S1-S2 regular, no murmurs, no tachycardia, no gallops, no rubs Abdomen: Soft, nontender, no organomegaly, bowel sounds present Neuro: No focal deficits, no facial deformity, AO x3, power 5/5 in all limbs Discharge Data Studies Completed and Pending Completed Studies During Hospitalization Category Date Time Status CT abdomen pelvis w con* [id number] Stat Cat Scan 08/25/22 07:53 Completed XR chest 1V portable [id number] Stat Exams 08/25/22 07:53 Completed Pending at discharge Category Date Time Status Gastricult Occult BLD Stat Lab 08/25/22 19:15 Ordered Helicobacter Pylori AG Stool Routine Lab 08/25/22 19:15 Received Radiology Impressions Abdomen/Pelvis CT 08/25/22 07:53 IMPRESSION: 1. No evidence of high-grade small or large bowel obstruction. 2. Fluid-filled enhancing small bowel bowel loops without evidence of obstruction. Small bowel loops are less distended compared to June 01, 2022. Recommend correlation for small bowel enteritis 3. Colon is normal caliber with scattered fluid and air-fluid levels in the transverse colon. 4. Enlarged prostate measuring 4.8 cm. Recommend correlation PSA. 5. Small esophageal hiatal hernia. 6. Fluid distended stomach with air-fluid levels with submucosal enhancement compatible with gastritis and duodenitis. 7. Stable previously described mesenteric panniculitis. Chest X-Ray 08/25/22 07:53 Impression: Atherosclerosis. Laboratory Results WBC 7.8 10^3/uL (4.0-10.0) 08/26/22 02:15 RBC 4.71 10^6/uL (4.1-5.3) 08/26/22 02:15 Hgb 14.3 g/dL (11.7-16.6) 08/26/22 02:15 Hct 44.5 % (42.0-52.0) 08/26/22 02:15 MCV 94.5 fl (80-94) H 08/26/22 02:15 MCH 30.4 pg (28.0-34.0) 08/26/22 02:15 MCHC 32.1 g/dL (30.0-36.0) 08/26/22 02:15 RDW 12.8 % (12.1-15.1) 08/26/22 02:15 Plt Count 239 10^3/cmm (130-400) 08/26/22 02:15 MPV 10.4 fL (7.4-10.4) 08/26/22 02:15 Neut % (Auto) 60.9 % 08/26/22 02:15 Lymph % (Auto) 23.2 % 08/26/22 02:15 Valley % (Auto) 12.2 % 08/26/22 02:15 Eos % (Auto) 2.4 % 08/26/22 02:15 Baso % (Auto) 0.5 % 08/26/22 02:15 Neut # (Auto) 4.77 10^3/uL (1.8-7.7) 08/26/22 02:15 Lymph # (Auto) 1.8 10^3/uL (0.8-4.8) 08/26/22 02:15 Valley # (Auto) 1.0 10^3/uL (0.2-0.9) H 08/26/22 02:15 Eos # (Auto) 0.2 10^3/uL (0.0-0.8) 08/26/22 02:15 Baso # (Auto) 0.0 10^3/uL (0.0-0.1) 08/26/22 02:15 Nucleated RBC % (auto) 0 % 08/26/22 02:15 Nucleated RBCs # 0.0 /100WBC 08/26/22 02:15 PT 15.00 SECONDS (12.1-14.9) H 08/25/22 08:03 INR 1.15 (0.8-1.2) 08/25/22 08:03 APTT 28.0 SECONDS (23.9-36.7) 08/25/22 08:03 Sodium 138 mmol/L (136-145) 08/26/22 02:15 Potassium 3.6 mmol/L (3.5-5.1) 08/26/22 02:15 Chloride 103 mmol/L (98-107) 08/26/22 02:15 Carbon Dioxide 25 mmol/L (22-29) 08/26/22 02:15 Anion Gap 13.6 (5-19) 08/26/22 02:15 BUN 18 mg/dL (8-23) 08/26/22 02:15 Creatinine 0.9 mg/dL (0.7-1.2) 08/26/22 02:15 GFR Calculation Not Reportable 08/26/22 02:15 Glucose 87 mg/dL (65-115) 08/26/22 02:15 Estimat Average Glucose 103 08/26/22 02:15 Hemoglobin A1c 5.2 % (4.0-6.0) 08/26/22 02:15 Calculated Osmolality 287 mOsm/kg (285-295) 08/26/22 02:15 Calcium 8.0 mg/dL (8.5-10.5) L 08/26/22 02:15 Iron 50 ug/dL (59-158) L 08/25/22 08:03 TIBC 241 mcg/dl 08/25/22 08:03 % Saturation 20.7 % (20-50) 08/25/22 08:03 Unsat Iron Binding 191 ug/dL (112-347) 08/25/22 08:03 Total Bilirubin 0.5 mg/dL (0.15-1.2) 08/26/22 02:15 AST 18 U/L (0-40) 08/26/22 02:15 ALT 15 U/L (0-41) 08/26/22 02:15 Alkaline Phosphatase 101 U/L (40-130) 08/26/22 02:15 Total Protein 5.6 g/dL (6.6-8.7) L D 08/26/22 02:15 Albumin 3.1 g/dL (3.5-5.2) L 08/26/22 02:15 Globulin 2.5 g/dL (1.3-4.6) 08/26/22 02:15 Triglycerides 113 mg/dL (0-150) 08/26/22 02:15 Cholesterol 132 mg/dL (0-200) 08/26/22 02:15 LDL Cholesterol, Calc 87 mg/dL (50-129) 08/26/22 02:15 Total VLDL Cholesterol 23 mg/dL (0-30) 08/26/22 02:15 HDL Cholesterol 22 mg/dL (60-100) L 08/26/22 02:15 Cholesterol/HDL Ratio 6.00 mg/dL (1.0-5.00) H 08/26/22 02:15 Vitamin B12 253 pg/mL (232-1245) 08/25/22 08:03 Folate 13.7 ng/mL (4.5-32.2) 08/25/22 08:03 TSH 1.83 uIU/mL (0.27-4.20) 08/25/22 08:03 H. pylori IgG Antibody Negative (Negative) 08/25/22 08:03 Blood Type A Positive 08/25/22 08:03 Rho(D) Type Positive 08/25/22 08:03 Antibody Screen Negative 08/25/22 08:03 Vitals Last Vital Signs Temp 98.4 F 08/26/22 07:40 Pulse 59 L 08/26/22 07:40 Resp 16 08/26/22 07:40 BP 109/63 08/26/22 07:40 Pulse Ox 93 08/26/22 07:40 O2 Del Method 08/26/22 07:40 Discharge Plan Discharge Patient Disposition: Home Condition: Stable Prescriptions: New ferrous gluconate 324 mg (37.5 mg iron) Tablet 324 mg PO BIDWM Qty: 60 0RF Protonix 40 mg tablet,delayed release (DR/EC) 40 mg PO BID 14 Days Qty: 28 0RF Protonix 40 mg tablet,delayed release (DR/EC) 40 mg PO DAILY 90 Days Qty: 90 0RF Carafate 1 gram tablet 1 g PO TID 28 Days Qty: 84 0RF Continued lisinopril-hydrochlorothiazide 20-12.5 mg Tablet 2 tab PO QAM cholecalciferol (vitamin D3) [Vitamin D3] 50 mcg (2,000 unit) Capsule 4,000 unit PO QAM ondansetron 4 mg tablet,disintegrating 4 mg PO Q6H PRN (Reason: nausea and vomiting) Qty: 10 1RF Discharge Orders: Discharge Order (Routine); Ordered 08/26/22 Ordered By: Vito James Referrals: Rebecca Taylor MD [Primary Care Provider] - 7-10 days (Please call Sunday to make a followup appointment with Dr. Taylor. ) Discharge Diet: Usual diet Discharge Activity: Resume usual activity and Increase activity as tolerated Patient Instructions: Iron Supplements (By mouth), Sucralfate (By mouth), Pantoprazole (By mouth), Melena (GEN), Opioid Safety Activity Restrictions/Additional Instructions: Please take Protonix twice daily for next 2 weeks followed by daily Take carafate before meals and at bedtime for next 4 weeks. Please follow with a primary care provider within next 1 week for repeat CBC. Discharge Attestations Time Spent in Discharge Care*: greater than 30 min Specific Discharge Activities: educating patient, discussing with pcp/other providers, discussing with case making machine operator/social workers/dc planners, documenting/other paperwork and evaluating patient/reviewing data Status at Discharge: Cognitive status at discharge: cognitively intact, Behavioral status at discharge: cooperative, Functional status at discharge: independent ambulation, Overall status at discharge: patient is back to baseline Quality Metrics Clinical Quality Measures [ No reported AMI, CVA or VTE this stay] Coding Level of Care Code 83843 Total time (in minutes) for Discharge: 60 Diagnoses Hematemesis K92.0 Melena K92.1 Duodenal ulcer K26.9 Helicobacter pylori gastritis K29.70; B96.81 Internal hemorrhoids K64.8 Hypertension I10
[2022-08-26 11:21] VITALS: BP 109/63; PULSE 59; RESP 16; TEMP 36.9; O2SAT 93
== END 2022-08-26 11:22 | disposition home or self-care (01) ==
LOC: ER 07:53 → MEDSURG 16:25
PROVIDERS: Admitting Provider Student in an Organized Health Care Education/Training Program; Emergency Provider Family Medicine; PCP Family Medicine; Visit Provider Student in an Organized Health Care Education/Training Program
DX: K92.0 Hematemesis (principal); K92.1 Melena; I10 Essential (primary) hypertension; K64.8 Other hemorrhoids; F17.220 Nicotine dependence, chewing tobacco, uncomplicated
CPT/HCPCS: 36415; 71045; 74177; 80053; 80061; 82274; 82607; 82746; 83036; 83540; 83550; 84443; 85025; 85610; 85730; 86677; 86850; 86900; 87338; 93005; 96361; 96374; 96376; 99285; C9113; G0378; J7030; Q9967

== ENCOUNTER → 2023-01-30 14:48 | Outpatient (BNVA) | payer OTHER, SELFPAY | PROVIDERS: PCP Family Medicine; Visit Provider Internal Medicine Cardiovascular Disease | DX: R07.9 Chest pain, unspecified (principal) | CPT/HCPCS: 93005; 99204 ==

== ENCOUNTER 2023-02-09 07:37 | Outpatient (CLI) | payer OTHER, SELFPAY ==
--- NOTE | 2023-02-09 08:27 | USCV_ITS ---
Tami Montez Age: 78 Gender: M : 1945 Exam Date: 02/09/2023 08:32 Ordering Phys: Rebecca Taylor MD Technologist: Donis Hernandez [place] [facility] [place]: [place] Risk Factors: Previous Vascular Surgery: Right Brachial BP: / Left Brachial BP: / Right Left Velocity (cm/s) Spectral Plaque Velocity (cm/s) Spectral Plaque Syst/Diast Broadening Syst/Diast Broadening 70.30/ 10.50 Prox CCA 97.20 / 14.00 96.30/ 14.80 Mid CCA 105.80/ 20.90 88.60/ 13.20 Distal CCA 141.10/ 25.40 87.80/ 17.90 Prox ICA 140.00/ 30.90 90.90/ 28.00 Mid ICA 71.60 / 15.10 90.90/ 21.00 Distal ICA 90.10 / 24.10 95.50 ECA 125.70 0.94 ICA/CCA 0.68 Antegrade Vertebral Antegrade 76.10/ 18.60 cm/s 66.00/ 13.20 cm/s Tri Subclavian Tri 110.3 117.1 0 0 CONCLUSIONS Right ICA stenosis <50%. Mild atheromatous plaque right carotid bulb/ICA. Left ICA stenosis 50-69%. Mild atheromatous plaque left carotid bulb/ICA. Normal antegrade Doppler flow noted in the right vertebral artery. Normal antegrade Doppler flow noted in the left vertebral artery. Kentrell Kulkarni MD (Electronically Signed) Final Date: 09 February 2023 11:00 S
--- NOTE | 2023-02-09 08:30 | USCV_ITS ---
Montez Garrett Age: 78 Gender: M : 1945 Exam Date: 02/09/2023 08:07 Ordering Phys: Briana Gonzalez MD ([email or web address]) Technologist: Donis Hernandez [place] [facility] [place]: heart murmur BP: 156 / 70 HR: 54 Rhythm: Sinus Technical Quality: Adequate MEASUREMENTS (Male / Female) Normal Values 2D ECHO LVOT Diameter 2.0 cm LV Ejection Fraction MOD 2C 63.3 % LV Ejection Fraction 2C AL 63.9 % LA Diameter 4.0 cm LA Width 3.6 cm LA Height 5.9 cm RA Width 3.9 cm RA Height 4.5 cm Aorta at Sinotubular Diameter 2.2 cm IVC Diameter 2.0 cm M-MODE Aortic Annulus Diameter 2.9 cm LA Ao Ratio MM 1.4 MV E Point Septal Separation 0.6 cm DOPPLER AV Peak Velocity 168.0 cm/s LVOT Peak Velocity 101.0 cm/s AV Area Cont Eq vti 2.1 cm squared AV Area Cont Eq pk 1.9 cm squared MV Peak Velocity 144.0 cm/s MV Area PHT 4.1 cm squared Mitral E to A Ratio 0.6 MV E' Velocity 45.0 cm/s Mitral E to MV E' Ratio 9.2 Mitral E to LV E' Lateral Ratio 7.7 Mitral E to LV E' Septal Ratio 11.6 TR Peak Velocity 284.1 cm/s TR Peak Gradient 32.3 mmHg TR Mean Velocity 223.3 cm/s TR Mean Gradient 23.8 mmHg TR Velocity Time Integral 71.5 cm Right Atrial Pressure 3.0 mmHg Pulmonary Artery Systolic Pressu 35.3 mmHg PV Peak Velocity 134.0 cm/s RV Acceleration Time 0.1 s RV Ejection Time 0.3 s RV AcT/ET 0.5 FINDINGS Left Ventricle Normal left ventricular size and systolic function, EF 69 %. No regional wall motion abnormalities. Grade I/IV diastolic dysfunction (abnormal relaxation filling pattern), normal to mildly elevated filling pressures. Right Ventricle The right ventricle is normal in size and function. Right Atrium The right atrium is normal in size. Left Atrium Mildly increased left atrial size. Mitral Valve Thickened mitral valve. Mild mitral annular calcification. Trace mitral valve regurgitation. Aortic Valve Thickened aortic valve. Mild aortic valve calcification. Tricuspid Valve Trace tricuspid valve regurgitation. Pulmonic Valve No gross abnormalities noted Pericardium Normal pericardium without effusion. Aorta Normal ascending aorta dimension. IVC The inferior vena cava appears normal. CONCLUSIONS Normal left ventricular size and systolic function, EF 69 %. No regional wall motion abnormalities. Grade I/IV diastolic dysfunction (abnormal relaxation filling pattern), normal to mildly elevated filling pressures. Mildly increased left atrial size. Thickened mitral valve. Mild mitral annular calcification. Trace mitral valve regurgitation. Thickened aortic valve. Mild aortic valve calcification. Trace tricuspid valve regurgitation. Estimated pulmonary artery peak systolic pressure 35 mm of Hg There is no pericardial effusion. There are no intracardiac masses. No similar previous studies are available for comparison Dr Briana Gonzalez MD FAC (Electronically Signed) Final Date: 09 February 2023 10:45 S
== END 2023-02-09 07:38 | disposition home or self-care (01) ==
LOC: RAD 07:39
PROVIDERS: PCP Family Medicine; Visit Provider Internal Medicine Cardiovascular Disease
DX: R42 Dizziness and giddiness (principal); R06.09 Other forms of dyspnea; I05.9 Rheumatic mitral valve disease, unspecified; I35.8 Other nonrheumatic aortic valve disorders; I65.22 Occlusion and stenosis of left carotid artery
CPT/HCPCS: 93306; 93880

== ENCOUNTER → 2023-05-03 10:34 | Outpatient (BNVA) | payer OTHER, SELFPAY | PROVIDERS: PCP Family Medicine; Visit Provider Internal Medicine Cardiovascular Disease | DX: R00.1 Bradycardia, unspecified (principal); R01.1 Cardiac murmur, unspecified; I10 Essential (primary) hypertension; R55 Syncope and collapse; I65.29 Occlusion and stenosis of unspecified carotid artery; E78.5 Hyperlipidemia, unspecified; F17.220 Nicotine dependence, chewing tobacco, uncomplicated | CPT/HCPCS: 99214 ==

== ENCOUNTER 2025-01-29 19:38 | Emergency (ER) | payer OTHER, MEDICARE, SELFPAY ==
[2025-01-29] VITALS (9 sets, daily range): BP systolic 118–201; BP diastolic 63–88; PULSE 54–83; RESP 14–17; TEMP 36.4; O2SAT 94–99; BMI 26.2
--- NOTE | 2025-01-29 19:43 | CTR_ITS ---
PROCEDURE INFORMATION: Exam: CTA Head With Contrast, Arteriography Exam date and time: 01/29/2025 7:54 PM Age: 80 years old Clinical indication: Stroke-like symptoms; Rodrigo lower extremity weakness; Additional info: CVA TECHNIQUE: Imaging protocol: Computed tomographic angiography of the head with contrast. Exam focused on the arteries. 3D rendering (Not supervised by radiologist): MIP and/or 3D reconstructed images were created by the technologist. Radiation optimization: All CT scans at this facility use at least one of these dose optimization techniques: automated exposure control; mA and/or kV adjustment per patient size (includes targeted exams where dose is matched to clinical indication); or iterative reconstruction. Contrast material: OMNIPAQUE 350; Contrast volume: 100 ml; Contrast route: INTRAVENOUS (IV); COMPARISON: CT head thrombolytic [id number] 01/29/2025 7:47 PM RADIATION DOSE METRICS: Total DLP (mGy-cm): 439.12 FINDINGS: ANTERIOR CIRCULATION: Right internal carotid artery: Circumferential calcifications in upper right internal carotid siphon partially obscure luminal detail. Right internal carotid artery otherwise shows no significant narrowing. Right middle cerebral artery: No occlusion or significant stenosis. No aneurysm. Right anterior cerebral artery: No occlusion or significant stenosis. No aneurysm. Left internal carotid artery: Circumferential calcifications in upper left internal carotid siphon partially obscure luminal detail. Left internal carotid artery otherwise shows no significant narrowing. Left middle cerebral artery: No occlusion or significant stenosis. No aneurysm. Left anterior cerebral artery: No occlusion or significant stenosis. No aneurysm. POSTERIOR CIRCULATION: Right vertebral artery: No occlusion or significant stenosis. No aneurysm. Left vertebral artery: No occlusion or significant stenosis. No aneurysm. Basilar artery: No occlusion or significant stenosis. No aneurysm. Right posterior cerebral artery: No occlusion or significant stenosis. No aneurysm. Left posterior cerebral artery: No occlusion or significant stenosis. No aneurysm. Brain: No definite mass, mass effect, or midline shift. Cerebral ventricles: No ventriculomegaly. Bones/joints: Unremarkable. No acute fracture. Soft tissues: Unremarkable. PROCEDURE INFORMATION: Exam: CTA Neck With Contrast Exam date and time: 01/29/2025 7:54 PM Age: 80 years old Clinical indication: Stroke-like symptoms; Rodrigo lower extremity weakness; Additional info: CVA TECHNIQUE: Imaging protocol: Computed tomographic angiography of the neck with contrast. Exam focused on the cervical segments of the vasculature. 3D rendering (Not supervised by radiologist): MIP and/or 3D reconstructed images were created by the technologist. Radiation optimization: All CT scans at this facility use at least one of these dose optimization techniques: automated exposure control; mA and/or kV adjustment per patient size (includes targeted exams where dose is matched to clinical indication); or iterative reconstruction. Contrast material: OMNIPAQUE 350; Contrast volume: 100 ml; Contrast route: INTRAVENOUS (IV); COMPARISON: CT head thrombolytic [id number] 01/29/2025 7:47 PM RADIATION DOSE METRICS: Total DLP (mGy-cm): 439.12 FINDINGS: Right common carotid artery: No stenosis. No dissection or occlusion. Right internal carotid artery: No stenosis of the extracranial segment. No dissection or occlusion. Right external carotid artery: No occlusion or stenosis of the origin. Left common carotid artery: No stenosis. No dissection or occlusion. Left internal carotid artery: No stenosis of the extracranial segment. No dissection or occlusion. Left external carotid artery: No occlusion or stenosis of the origin. Right vertebral artery: No stenosis. No dissection or occlusion. Left vertebral artery: No stenosis. No dissection or occlusion. Soft tissues: Normal. No significant soft tissue swelling. Bones/joints: No acute fracture. Spinal canal narrowing suggested at C5-C6 due to degenerative changes including a component of retrolisthesis of C5 on C6. CT/CT angio headneck* [id number] IMPRESSION: Partially obscured luminal detail at internal carotid siphons due to circumferential calcifications but otherwise no findings of occlusion or significant narrowing. IMPRESSION: No stenosis or occlusion. REFERENCES: NASCET CRITERIA. The degree of stenosis in the cervical segment of the internal carotid artery is based on NASCET criteria. Normal is no stenosis. Mild is less than 50% stenosis. Moderate is 50-69% stenosis. Severe is 70% to 99% stenosis. Total occlusion is no detectable patent lumen.
--- NOTE | 2025-01-29 19:43 | CTR_ITS ---
PROCEDURE INFORMATION: Exam: CT Head Without Contrast Exam date and time: 01/29/2025 7:47 PM Age: 80 years old Clinical indication: Stroke-like symptoms; Altered mental status/memory loss; Rodrigo lower extremity weakness; Additional info: Symptoms of acute stroke TECHNIQUE: Imaging protocol: Computed tomography of the head without contrast. Radiation optimization: All CT scans at this facility use at least one of these dose optimization techniques: automated exposure control; mA and/or kV adjustment per patient size (includes targeted exams where dose is matched to clinical indication); or iterative reconstruction. Other technique: STROKE PROTOCOL was implemented. COMPARISON: No relevant prior studies available. RADIATION DOSE METRICS: Total DLP (mGy-cm): 1133.38 FINDINGS: Brain: Normal. No hemorrhage. Unremarkable white matter. No mass effect. Cerebral ventricles: No ventriculomegaly. Paranasal sinuses: Visualized sinuses are unremarkable. No fluid levels. Mastoid air cells: Visualized mastoid air cells are well aerated. Bones: Unremarkable. No acute fracture. Soft tissues: Unremarkable. CT/CT head thrombolytic [id number] IMPRESSION: No acute intracranial abnormality. ASSESSMENT: ASPECTS ([place] Stroke Program Early CT Score) is 10.
--- NOTE | 2025-01-29 19:52 | ED_ITS ---
HPI - Neuro Symptoms/Deficit 2 General: Chief Complaint: Dizziness Stated Complaint: Dizziness Time Seen by Provider: 01/29/25 19:50 Source: patient Mode of arrival: ambulatory Limitations: no limitations History of Present Illness: This patient presents to the emergency department because of acute vertigo. He states that he was in his normal state of health until sometime around noon or 1:00 today when he noted that he could not hear well out of his right ear. He also developed associated dizziness and felt like he was off balance and could not walk well. There was no preceding trauma. He had no preceding change in his usual constitutional symptoms. He denies headache focal weakness etc. 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 He states his symptoms persisted and he felt that he could not walk well and felt unsteady every time he tried to get up and walk. He states the symptoms seem to panchito some when he was in a resting position but still continue to feel like he was continually off balance. History of same: No On Anticoagulants: No Associated symptoms: Reports nausea and vertigo; Deny chest pain, headache(s) or vomiting Related Data Home Medications ?Medication ?Instructions ?Recorded ?Confirmed cholecalciferol (vitamin D3) 50 4,000 unit PO QAM 05/1808/28/22 mcg (2,000 unit) capsule (Vitamin D3) lisinopril 20 2 tab PO QAM 06/01/22 mg-hydrochlorothiazide 12.5 mg tablet omeprazole magnesium 20 mg 20 mg PO DAILY 01/30/23 tablet,delayed release sucralfate 1 gram tablet 1 g PO Q6H 01/30/23 Previous Rx's ?Medication ?Instructions ?Recorded ondansetron 4 mg disintegrating 4 mg PO Q6H PRN nausea and 06/01/22 tablet vomiting #10 tabs ferrous gluconate 324 mg (37.5 mg 324 mg PO BIDWM #60 tabs 08/26/22 iron) tablet atorvastatin 40 mg tablet (Lipitor) 40 mg PO DAILY #30 tabs 05/03/23 Allergies Allergy/AdvReac Type Severity Reaction Status Date / Time No Known Allergies Allergy Verified 01/30/23 15:09 Review of Systems 2 Const: Denies: fever(s) or chills Eyes: Denies: change in vision ENMT: Denies: throat pain or odynophagia Card: Denies: chest pain or palpitations Resp: Denies: dyspnea, productive cough or non-productive cough GI: Reports: nausea; Denies: abdominal pain, vomiting or diarrhea : Denies: flank pain, difficulty urinating, dysuria or urinary frequency Musc: Denies: neck pain, back pain, extremity pain or extremity swelling Skin/Breast: Denies: rash, pruritus or erythema Neuro: Reports: lack of coordination, difficulty walking, dizziness and vertigo; Denies: headache(s), numbness in extremities, weakness in extremities or Slurred speech present Psych: Denies: anxiety, depression or mood swings Endo: Denies: polyuria or polydipsia [place]/Lymph: Denies: easy bruising or easy bleeding PFSH ED 2 PFSH: Medical History Hypertension Duodenal ulcer Internal hemorrhoids GERD (gastroesophageal reflux disease) Lower urinary tract symptoms (LUTS) Elevated prostate specific antigen [PSA] Surgical History History of appendectomy Family History Mother , at age 84 Alzheimer disease Depression Father , at age 74 Acute leukemia Social History Smoking and tobacco/nicotine status: current every day tobacco/nicotine user smokeless tobacco Smokeless tobacco user: chewing tobacco Alcohol intake: never Adopted: No Lives independently: Yes Marital status: service: Yes Current occupational status: retired Previous occupational history: [employer] NIH stroke score 2 NIHSS: Level Of Consciousness - 1a: 0 Level Of Consciousness Questions - 1b: Both Correct Level Of Consciousness Commands - 1c: Both Correct Best Gaze - 2: Normal Visual Lucia - 3: No Visual Loss Facial Palsy - 4: N ormal Motor Arm Right - 5: No Drift Motor Arm Left - 5: No Drift Motor Leg Right - 6: No Drift Motor Leg Left - 6: No Drift Limb Ataxia - 7: A bsent Sensory - 8: Normal Best Language - 9: No Aphasia Dysarthia - 10: Normal Extinction And Inattention - 11: 0 Score: Total Score: 0 Physical Exam 2 Narrative: EXAM NARRATIVE: The patient is alert makes good eye contact. Somewhat anxious but answers questions in a goal-directed fashion. Const: COMMON NORMALS: average body habitus, patient oriented x3 and alert GENERAL APPEARANCE: cooperative HENMT: COMMON NORMALS: atraumatic, EAC's normal (Partially occluded by cerumen in the right side but TM is visualized.), TM's normal bilaterally, moist oral mucous membranes and oropharynx normal HEAD & SCALP: atraumatic FACE & SINUS: sinuses nontender and face symmetric EXTERNAL AUDITORY CANAL: EAC's normal (Partially occluded by cerumen in the right side but TM is visualized.) TYMPANIC MEMBRANE: TM's normal bilaterally Eye: COMMON NORMALS: Equal, round and reactive pupils present and conjunctivae normal CONJUNCTIVA: Yes conjunctivae normal PUPIL: Yes Equal, round and reactive pupils present EOM: Yes Nystagmus present (He has continual nystagmus with some suggestion of a rotatory component) OTHER: He is nystagmus is continual in nature and does not appear to have a discernible return to midline with cover and uncover testing. Neck/C-Spine: COMMON NORMALS: full ROM, no lymphadenopathy, supple and No carotid bruits Chest: COMMONS NORMALS: normal inspection of the chest Resp: COMMON NORMALS: normal respiratory effort, No retractions and clear to auscultation bilaterally AUSCULTATION: clear to auscultation bilaterally Cardio: COMMON NORMALS: regular rate, regular rhythm, No murmurs present (Cardio) and Peripheral pulses 2+ throughout RATE: regular rate RHYTHM: r egular rhythm PERIPHERAL PULSES: Peripheral pulses 2+ throughout GI: COMMON NORMALS: Normal to inspection, nondistended, normoactive bowel sounds present, Soft to palpation and non-tender PALPATION: Yes Soft to palpation : COMMON NORMALS: Yes no CVA tenderness BLADDER/KIDNEY EXAM: Yes no CVA tenderness Back/Pelvis: COMMON NORMALS: no CVA tenderness, thoracic and lumbar spine normal to inspection, no thoracic nor lumbar tenderness and thoraco-lumbar ROM normal Extremity: COMMON NORMALS: normal to inspection, full ROM, capillary refill normal and no joint enlargement Neuro: COMMON NORMALS: patient oriented x3, moves all extremities and no focal motor deficits SENSORIUM/ORIENTATION: Yes alert COORDINATION/BALANCE: f [id number]-rw-yteh test normal and aftd-ui-[id number] test normal COORDINATION: f aueer-rn-dfqq test normal and hjhg-if-svug test normal OTHER: The patient is quite ataxic and he cannot move without significant ataxia and abnormal gait. He has continual nystagmus that does not fatigue. Skin: COMMON NORMALS: no rashes or lesions noted, no wounds and turgor normal GENERAL SKIN EXAM: no rashes or lesions noted and turgor normal Course 2 Reevaluation(s): Reevaluation #1: Vrad report negative Time: 20:04 Reevaluation #2: Patient remains clinically stable at this time. After some [id number]-[id number] discussion with neurologist and hospitalist it was determined that we did not have a neurology support here for the next 4 days so therefore the plan will be to transfer the patient for MRI and neurology evaluation. Time: :29 Consultations: Consultation #1: Neurology consult was obtained with Dr. Bill on-call fellow for neurology services at [facility]. We reviewed the patient's presentation, clinical examination, imaging studies. They concurred with the plan to place the patient in this facility in observation status pending MRI in the morning. At this point there would be no acute intervention that would be warranted unless the patient had a change in his condition and then that could be addressed by additional imaging and or consultation. Time: :29 Consultation #2: Discussed with Dr. Krystyna Fletcher stroke neurologist at [facility] who agreed that the patient should be transferred for further imaging and workup. Also discussed with the ED physician Dr. Pascal at [facility] emergency department who agreed to accept the patient to the ED for further workup Time: 22:18 Vital Signs: Vital signs: Vital Signs Temperature 97.5 F L 01/29/25 19:42 Pulse Rate 54 L 01/29/25 22:00 Respiratory Rate 16 01/29/25 22:00 Blood Pressure 139/71 01/29/25 22:00 Pulse Oximetry 94 01/29/25 22:00 Oxygen Delivery Me thod Room Air 01/29/25 22:00 MDM - Neuro Symptoms/Deficit Medical Decision Making This patient presented as noted in the HPI with symptoms onset somewhere around 12:00 noon today when he noted acute right-sided hearing loss with inability to walk without falling. The symptoms were not associated with any injury, fevers chills or other focal weakness or other concerning findings at that time. The patient went home and continued to have persistent symptoms and therefore made his way to the emergency department. His clinical exam was notable for persistent nonfatty fatiguing nystagmus which was had both fast and slow component which alternated from gpvy-op-reaf. It was difficult but there did not seem to be a obvious rotatory component. He did have truncal ataxia without any evidence of peripheral ataxia. He had an NIH otherwise of 0. His workup initiated per stroke protocol was negative regarding any evidence of hemorrhage on his noncontrast CT scan a CTA also revealed patent vasculature including vertebrals. Patient still continue to have persistent cerebellar symptoms. Concern was regarding a posterior stroke and initially telestroke at [facility] was consulted however they were unable to provide continued care as we had no neurology support at this facility so therefore this decision was made to transfer the patient to [facility] (the patient's preference) for additional imaging to include MRI and neurology consultation and care. The patient is being transferred in stable condition at this time. Patient did receive 325 mg of enteric-coated aspirin but did not require any additional intervention as his vital signs remained stable. Lab Data I reviewed the patient's lab results. 01/29/25 19:55 01/29/25 19:[address] 01/29/25 19:43 IMPRESSION: No acute intracranial abnormality. ASSESSMENT: ASPECTS (Twyla Stroke Program Early CT Score) is 10. ADDENDUM: 01/29/252005 Case impression discussed with ordering clinician. Head/Neck CTA 01/29/25 19:43 IMPRESSION: Partially obscured luminal detail at internal carotid siphons due to circumferential calcifications but otherwise no findings of occlusion or significant narrowing. IMPRESSION: No stenosis or occlusion. REFERENCES: NASCET CRITERIA. The degree of stenosis in the cervical segment of the internal carotid artery is based on NASCET criteria. Normal is no stenosis. Mild is less than 50% stenosis. Moderate is 50-69% stenosis. Severe is 70% to 99% stenosis. Total occlusion is no detectable patent lumen. ADDENDUM: 01/29/252027 Case impression discussed with ordering clinician. Laboratory Results WBC 8.28 10^3/uL (3.29-11.43) 01/29/25 19:55 RBC 4.97 10^6/uL (3.85-5.65) 01/29/25 19:55 Hgb 15.80 g/dL (11.27-16.99) 01/29/25 19:55 Hct 46.8 % (37-53) 01/29/25 19:55 MCV 94.2 fl (82-101) 01/29/25 19:55 MCH 31.8 pg (27-33) 01/29/25 19: MCHC 33.8 g/dL (30-55) 01/29/25 19:55 RDW 13.9 % (12.1-15.1) 01/29/25 19:55 Plt Count 222 10^3/cmm (157-399) 01/29/25 19: MPV 10.2 fL (7.4-10.4) 01/29/25 19:55 Neut % (Auto) 51.4 % 01/29/25 19:55 Lymph % (Auto) 37.0 % 01/29/25 19:55 [place] % (Auto) 6.9 % 01/29/25 19:55 Eos % (Auto) 3.1 % 01/29/25 19:55 Baso % (Auto) 0.5 % 01/29/25 19:55 Neut # (Auto) 4.26 10^3/uL (1.8-7.7) 01/29/25 19:55 Lymph # (Auto) 3.1 10^3/uL (0.8-4.8) 01/29/25 19:55 [place] # (Auto) 0.6 10^3/uL (0.2-0.9) 01/29/25 19:55 Eos # (Auto) 0.3 10^3/uL (0.0-0.8) 01/29/25 19:55 Baso # (Auto) 0.0 10^3/uL (0.0-0.1) 01/29/25 19:55 Nucleated RBC % (auto) 0 % 01/29/25 19: Nucleated RBCs # 0.0 /100WBC 01/29/25 19:55 PT 14.00 SECONDS (12.1-14.9) 01/29/25 19: INR 1.01 (0.8-1.2) 01/29/25 19:55 APTT 27.3 SECONDS (23.9-36.7) 01/29/25 19:55 Sodium 135 mmol/L (136-145) L 01/29/25 19:55 Potassium 3.1 mmol/L (3.5-5.1) L 01/29/25 19:55 Chloride 97 mmol/L (98-107) L 01/29/25 19:55 Carbon Dioxide 24 mmol/L (22-29) 01/29/25 19:55 Anion Gap 17.1 (5-19) 01/29/25 19:55 BUN 23 mg/dL (8-23) 01/29/25 19:55 Creatinine 1.0 mg/dL (0.7-1.2) 01/29/25 19:55 GFR Calculation Not Reportable 01/29/25 19:55 Glucose 116 mg/dL (65-115) H 01/29/25 19:55 Calculated Osmolality 285 mOsm/kg (285-295) 01/29/25 19:55 Calcium 9.1 mg/dL (8.5-10.5) 01/29/25 19:55 Total Bilirubin 0.6 mg/dL (0.15-1.2) 01/29/25 19:55 AST 19 U/L (0-40) 01/29/25 19:55 ALT 19 U/L (0-41) 01/29/25 19:55 Alkaline Phosphatase 140 U/L (40-130) H 01/29/25 19:55 Total Protein 7.0 g/dL (6.6-8.7) 01/29/25 19:55 Albumin 4.3 g/dL (3.5-5.2) 01/29/25 19:55 Globulin 2.7 g/dL (1.3-4.6) 01/29/25 19:55 All radiology interpretation(s) finalized by discharge EKG Data EKG 1: I personally reviewed and interpreted this EKG as follows: Interpretation: Review of resting EKG reveals ventricular rate of 77 bpm. OR interval normal, QRS duration normal, corrected QT interval normal. Normal axis. No acute ST changes suggestive of ischemia has some nonspecific ST-T wave changes noted of the precordial leads. Discharge Plan Discharge Patient Disposition: Xfer Short-Term Hosp Clinical Impression: Cerebellar ataxia Condition: Stable Referrals: Rebecca Taylor MD [Primary Care Provider, Family Practice] Print Language: Gibraltarian Coding Level of Care Code ED Pressure Tank Operator for Susieg Jaime
[2025-01-29] MEDS: iohexol 350 mg/mL 500 mL Btl (per mL) IV (19:57)
--- NOTE | 2025-01-29 20:08 | PC.NURSE ---
194- pt transported to ct via wheelchair from triage per myself. BSG performed in ct and found to be 103.
[2025-01-29 20:24] LABS: Hematocrit 46.8 % (37-53); Hemoglobin 15.80 g/dL (11.27-16.99); Mean Corpuscular HGB Conc 33.8 g/dL (30-55); Mean Corpuscular Hemoglobin 31.8 pg (27-33); Mean Corpuscular Volume 94.2 fl (82-101); Nucleated Red Blood Cells % 0 %; Platelet Count 222 10^3/cmm (157-399); Red Blood Count 4.97 10^6/uL (3.85-5.65); White Blood Count 8.28 10^3/uL (3.29-11.43)
--- NOTE | 2025-01-29 20:31 | ECG_ITS ---
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
[2025-01-29 20:37] LABS: INR 1.01 (0.8-1.2); Prothrombin Time 14.00 SECONDS (12.1-14.9)
[2025-01-29 20:38] LABS: Partial Thromboplastin Time 27.3 SECONDS (23.9-36.7)
[2025-01-29 20:45] LABS: Alanine Aminotransferase 19 U/L (0-41); Albumin Level 4.3 g/dL (3.5-5.2); Alkaline Phosphatase 140 U/L (40-130); Anion Gap 17.1 (5-19); Aspartate Amino Transferase 19 U/L (0-40); Blood Urea Nitrogen 23 mg/dL (8-23); Calcium 9.1 mg/dL (8.5-10.5); Carbon Dioxide 24 mmol/L (22-29); Chloride 97 mmol/L (98-107); Creatinine Clr Calc Pharmacy 64.0633; Globulin 2.7 g/dL (1.3-4.6); Glucose 116 mg/dL (65-115); Osmolality Calculated 285 mOsm/kg (285-295); Potassium 3.1 mmol/L (3.5-5.1); Sodium 135 mmol/L (136-145); Total Protein 7.0 g/dL (6.6-8.7)
[2025-01-29 22:30] LABS: Add Urine Microscopic? NO
[2025-01-29 22:31] LABS: Glucose Urine UA Negative (Normal); Nitrate Urine Negative (Negative)
[2025-01-29 22:49] LABS: Charge for UA Resulting for Rev; Specific Gravity, Urine 1.055 (1.005-1.030)
== END 2025-01-29 23:38 | disposition short-term general hospital (02) ==
PROVIDERS: Emergency Provider Emergency Medicine; PCP Family Medicine
DX: G11.9 Hereditary ataxia, unspecified (principal); F17.220 Nicotine dependence, chewing tobacco, uncomplicated; I10 Essential (primary) hypertension
CPT/HCPCS: 36415; 70450; 70496; 70498; 80053; 81003; 85025; 85610; 85730; 93005; 99285; 99291; J9999

== ENCOUNTER 2025-03-11 14:48 | Outpatient (CLI) | payer OTHER, SELFPAY ==
--- NOTE | 2025-03-11 14:55 | USCV_ITS ---
Montez Garrett Age: 80 Gender: M : 1945 Exam Date: 03/11/2025 15:14 Ordering Phys: Rebecca Taylor MD Technologist: ALEXANDRU Exam Location: [facility] [place] Indication: stenosis Risk Factors: Previous Vascular Surgery: Right Brachial BP: / Left Brachial BP: / Right Left Velocity (cm/s) Spectral Plaque Velocity (cm/s) Spectral Plaque Syst/Diast Broadening Syst/Diast Broadening 80.20/ 14.10 Prox CCA 110.50/ 16.60 80.20/ 15.40 Mid CCA 91.30 / 13.40 82.80/ 14.10 Distal CCA 104.30/ 15.00 42.90/ 4.50 Prox ICA 64.50 / 13.70 35.20/ 10.80 Mid ICA 59.40 / 13.40 84.20/ 16.50 Distal ICA 53.50 / 10.60 117.00 ECA 92.20 1.00 ICA/CCA 0.60 Antegrade Vertebral Antegrade 44.10/ 12.80 cm/s 38.60/ 8.80 cm/s Bi Subclavian Tri 109.8 109.6 0 0 CONCLUSIONS Right ICA stenosis <50%. Moderate atheromatous plaque right carotid bulb/ICA. Left ICA stenosis <50%. Moderate atheromatous plaque left carotid bulb/ICA. Intimal thickening in the common carotid arteries and internal carotid arteries bilaterally. Normal antegrade Doppler flow noted in the right vertebral artery. Normal antegrade Doppler flow noted in the left vertebral artery. Kentrell Kulkarni MD (Electronically Signed) Final Date: 11 March 2025 16:31 S
== END 2025-03-11 14:49 | disposition home or self-care (01) ==
PROVIDERS: PCP Family Medicine; Visit Provider Family Medicine
DX: I65.23 Occlusion and stenosis of bilateral carotid arteries (principal)
CPT/HCPCS: 93880

== ENCOUNTER 2025-05-22 19:05 | Inpatient (IN) | payer OTHER, SELFPAY ==
[2025-05-22] VITALS (22 sets, daily range): BP systolic 106–174; BP diastolic 60–94; PULSE 59–102; RESP 11–99; TEMP 36.6–37.1; O2SAT 92–99; BMI 24.0; BMI 25.7
--- NOTE | 2025-05-22 19:20 | ECG_ITS ---
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
--- NOTE | 2025-05-22 19:29 | CTR_ITS ---
PROCEDURE INFORMATION: Exam: CT Head Without Contrast Exam date and time: 05/22/2025 7:39 PM Age: 80 years old Clinical indication: Stroke-like symptoms; Dizziness/giddiness and other: Altered gait; Additional info: C/O dizziness with unsteady gait. Last known well time of 1900 hours. History of CVA. TECHNIQUE: Imaging protocol: Computed tomography of the head without contrast. Radiation optimization: All CT scans at this facility use at least one of these dose optimization techniques: automated exposure control; mA and/or kV adjustment per patient size (includes targeted exams where dose is matched to clinical indication); or iterative reconstruction. Other technique: STROKE PROTOCOL was implemented. COMPARISON: CT angio headneck* [id number] 01/29/2025 7:54 PM RADIATION DOSE METRICS: Total DLP (mGy-cm): 1150.98 FINDINGS: Brain: No evidence of intra-axial or extra-axial hemorrhage. No mass effect or midline shift. Lira-white differentiation is maintained. Basilar cisterns are patent. Cerebral ventricles: No hydrocephalus. Paranasal sinuses: The visualized paranasal sinuses are well aerated. Mastoid air cells: The visualized mastoids and middle ears are clear. Bones: Calvarium is intact. No evidence of acute fracture. Soft tissues: No gross soft tissue abnormality. CT/CT head thrombolytic 72214 IMPRESSION: 1. No acute intracranial abnormality. ASSESSMENT: ASPECTS (Twyla Stroke Program Early CT Score) is 10.
[2025-05-22 19:34] LABS: Hematocrit 48.1 % (37-53); Hemoglobin 16.20 g/dL (11.27-16.99); Mean Corpuscular HGB Conc 33.7 g/dL (30-55); Mean Corpuscular Hemoglobin 32.1 pg (27-33); Mean Corpuscular Volume 95.4 fl (82-101); Nucleated Red Blood Cells % 0 %; Platelet Count 238 10^3/cmm (157-399); Red Blood Count 5.04 10^6/uL (3.85-5.65); White Blood Count 8.94 10^3/uL (3.29-11.43)
[2025-05-22 19:40] LABS: INR 1.01 (0.8-1.2); Prothrombin Time 14.00 SECONDS (12.1-14.9)
[2025-05-22 19:41] LABS: Partial Thromboplastin Time 26.4 SECONDS (23.9-36.7)
[2025-05-22 19:45] LABS: Alanine Aminotransferase 22 U/L (0-41); Albumin Level 4.3 g/dL (3.5-5.2); Alkaline Phosphatase 118 U/L (40-130); Anion Gap 15.1 (5-19); Aspartate Amino Transferase 20 U/L (0-40); Blood Urea Nitrogen 15 mg/dL (8-23); Calcium 9.3 mg/dL (8.5-10.5); Carbon Dioxide 26 mmol/L (22-29); Chloride 103 mmol/L (98-107); Globulin 2.8 g/dL (1.3-4.6); Glucose 110 mg/dL (65-115); Osmolality Calculated 293 mOsm/kg (285-295); Potassium 3.1 mmol/L (3.5-5.1); Sodium 141 mmol/L (136-145); Total Protein 7.1 g/dL (6.6-8.7)
[2025-05-22] MEDS: tenecteplase 50mg Kit (STROKE) 19 MG IVP (20:25)
--- NOTE | 2025-05-22 20:29 | ED_ITS ---
HPI - Neuro Symptoms/Deficit 2 General: Chief Complaint: Neuro Symptoms/Deficit Stated Complaint: Thinks having a stroke Time Seen by Provider: 05/22/25 19:21 History of Present Illness: Patient is an 80-year-old male who presents with acute onset of dizziness that began approximately 45 minutes prior to arrival. He reports that the dizziness started when he got up from his computer. He describes the dizziness as a spinning sensation (vertigo) that persists even when lying down, though it is somewhat less severe in that position. The patient notes that objects in his visual field appear to move. He reports generalized weakness but denies unilateral weakness, numbness, or tingling. The patient was able to walk approximately 5-6 steps from his computer to his recliner using a cane, which he reports using periodically. He denies nausea or vomiting. The patient has a history of vertigo episodes in the past, but states this current episode is completely more severe than his typical episodes. Of note, the patient has a history of stroke in January (approximately 4 months ago), which was confirmed by MRI at that time. He reports presenting to the ER within 30 minutes of symptom onset today, concerned about the possibility of another stroke. He is currently taking clopidogrel 75mg daily and aspirin 81mg daily for stroke prevention. Related Data Home Medications ?Medication ?Instructions ?Recorded ?Confirmed cholecalciferol (vitamin D3) 50 4,000 unit PO QAM 05/1808/28/22 mcg (2,000 unit) capsule (Vitamin D3) lisinopril 20 2 tab PO QAM 06/01/22 mg-hydrochlorothiazide 12.5 mg tablet omeprazole magnesium 20 mg 20 mg PO DAILY 01/30/23 tablet,delayed release sucralfate 1 gram tablet 1 g PO Q6H 01/30/23 Previous Rx's ?Medication ?Instructions ?Recorded ondansetron 4 mg disintegrating 4 mg PO Q6H PRN nausea and 06/01/22 tablet vomiting #10 tabs ferrous gluconate 324 mg (37.5 mg 324 mg PO BIDWM #60 tabs 08/26/22 iron) tablet atorvastatin 40 mg tablet (Lipitor) 40 mg PO DAILY #30 tabs 05/03/23 Allergies Allergy/AdvReac Type Severity Reaction Status Date / Time No Known Allergies Allergy Verified 05/22/25 19:25 PFSH ED 2 PFSH: Medical History Hypertension Duodenal ulcer Internal hemorrhoids GERD (gastroesophageal reflux disease) Lower urinary tract symptoms (LUTS) Elevated prostate specific antigen [PSA] Surgical History History of appendectomy Family History Mother , at age 84 Alzheimer disease Depression Father , at age 74 Acute leukemia Social History Smoking and tobacco/nicotine status: current every day tobacco/nicotine user smokeless tobacco Smokeless tobacco user: chewing tobacco Alcohol intake: never Adopted: No Lives independently: Yes Marital status: service: Yes Current occupational status: retired Previous occupational history: [employer] NIH stroke score 2 NIHSS: Level Of Consciousness - 1a: 0 Level Of Consciousness Questions - 1b: Both Correct Level Of Consciousness Commands - 1c: Both Correct Best Gaze - 2: Normal Visual Lucia - 3: No Visual Loss Facial Palsy - 4: N ormal Motor Arm Right - 5: No Drift Motor Arm Left - 5: No Drift Motor Leg Right - 6: No Drift Motor Leg Left - 6: No Drift Limb Ataxia - 7: A bsent Sensory - 8: Normal Best Language - 9: No Aphasia Dysarthia - 10: Mild/Moderate Dysarthia Extinction And Inattention - 11: 0 Score: Total Score: 1 Physical Exam 2 Const: GENERAL APPEARANCE: cooperative; not frail appearing HENMT: COMMON NORMALS: normocephalic, atraumatic and Normal external nose present HEAD & SCALP: normocephalic and atraumatic FACE & SINUS: normal facial exam and face symmetric NOSE: Normal external nose present Eye: COMMON NORMALS: Equal, round and reactive pupils present and EOMs intact bilaterally PUPIL: Yes Equal, round and reactive pupils present Neck/C-Spine: GENERAL: Yes trachea midline Chest: CHEST: Yes Symmetrical chest wall rise Resp: COMMON NORMALS: normal respiratory effort, No retractions, No use of accessory muscles and clear to auscultation bilaterally AUSCULTATION: clear to auscultation bilaterally Cardio: COMMON NORMALS: regular rate and regular rhythm RATE: regular rate RHYTHM: regular rhythm GI: COMMON NORMALS: Normal to inspection, nondistended, normoactive bowel sounds present Extremity: COMMON NORMALS: no pedal edema Neuro: KELVIN COMA SCALE: document GCS findings [place] coma scale eye opening: Spontaneous Kelvin coma scale verbal response: Orientated [place] coma scale motor response: Obey commands [place] coma scale total score: 15 S ENSORY EXAM: Yes extremities (intact) Psych: COMMON NORMALS: speech normal SPEECH: Yes normal speech Skin: COMMON NORMALS: no rashes or lesions noted GENERAL SKIN EXAM: no rashes or lesions noted Course 2 Vital Signs: Vital signs: Vital Signs Temperature 97.8 F 05/22/25 22:11 Pulse Rate 84 05/22/25 22:45 Respiratory Rate 22 H 05/22/25 22:45 Blood Pressure 155/84 05/22/25 22:45 Pulse Oximetry 95 05/22/25 22:45 Oxygen Delivery Me thod Room Air 05/22/25 22:21 MDM - Neuro Symptoms/Deficit Medical Decision Making This is an astute, functional 80-year-old male with a history of stroke. He presents with vertigo symptoms that are significant, even at rest. He has significant nystagmus. He has a gait disturbance that is significant compared to his normal gait. He also has some mild dysarthria. Because his ataxia is significant, and would be debilitating ongoing disability, TNKase was considered in this patient. Stroke alert was called. Neurology was consulted. She has seen the patient via telemedicine, and has agreed that TNKase was appropriate. Patient consented. TNKase was given. During his ER stay, symptoms seem to improve somewhat. They definitely did not worsen. He still has some nystagmus. He will go to the ICU for observation. Hospitalist is aware. Potassium is 3.1. Other laboratory including CBC and the rest of his BMP are benign. Head CT was nonacute. No bleed obviously. Drug screen is negative. Urinalysis is negative. Lab Data 05/22/25 19:23 05/22/25 19:[address] 05/22/25 19:29 IMPRESSION: 1. No acute intracranial abnormality. ASSESSMENT: ASPECTS ([place] Stroke Program Early CT Score) is 10. ADDENDUM: 05/22/252000 The findings were verbally communicated by telephone with Dr. BARROS at 8:00 PM [employer] on 05/22/2025. Laboratory Results WBC 8.94 10^3/uL (3.29-11.43) 05/22/25 19:23 RBC 5.04 10^6/uL (3.85-5.65) 05/22/25 19:23 Hgb 16.20 g/dL (11.27-16.99) 05/22/25 19:23 Hct 48.1 % (37-53) 05/22/25 19:23 MCV 95.4 fl (82-101) 05/22/25 19:23 MCH 32.1 pg (27-33) 05/22/25 19:23 MCHC 33.7 g/dL (30-55) 05/22/25 19:23 RDW 13.3 % (12.1-15.1) 05/22/25 19:23 Plt Count 238 10^3/cmm (157-399) 05/22/25 19:23 MPV 10.1 fL (7.4-10.4) 05/22/25 19:23 Neut % (Auto) 49.6 % 05/22/25 19:23 Lymph % (Auto) 38.1 % 05/22/25 19:23 Whitley % (Auto) 8.5 % 05/22/25 19:23 Eos % (Auto) 2.5 % 05/22/25 19:23 Baso % (Auto) 0.6 % 05/22/25 19:23 Neut # (Auto) 4.44 10^3/uL (1.8-7.7) 05/22/25 19:23 Lymph # (Auto) 3.4 10^3/uL (0.8-4.8) 05/22/25 19:23 Whitley # (Auto) 0.8 10^3/uL (0.2-0.9) 05/22/25 19:23 Eos # (Auto) 0.2 10^3/uL (0.0-0.8) 05/22/25 19:23 Baso # (Auto) 0.1 10^3/uL (0.0-0.1) 05/22/25 19:23 Nucleated RBC % (auto) 0 % 05/22/25 19:23 Nucleated RBCs # 0.0 /100WBC 05/22/25 19:23 PT 14.00 SECONDS (12.1-14.9) 05/22/25 19:23 INR 1.01 (0.8-1.2) 05/22/25 19:23 APTT 26.4 SECONDS (23.9-36.7) 05/22/25 19:23 Sodium 141 mmol/L (136-145) 05/22/25 19:23 Potassium 3.1 mmol/L (3.5-5.1) L 05/22/25 19:23 Chloride 103 mmol/L (98-107) 05/22/25 19:23 Carbon Dioxide 26 mmol/L (22-29) 05/22/25 19:23 Anion Gap 15.1 (5-19) 05/22/25 19:23 BUN 15 mg/dL (8-23) 05/22/25 19:23 Creatinine 0.9 mg/dL (0.7-1.2) 05/22/25 19:23 GFR Calculation Not Reportable 05/22/25 19:23 Glucose 110 mg/dL (65-115) 05/22/25 19:23 POC Glucose 102 mg/dL (70-110) 05/22/25 19:17 Calculated Osmolality 293 mOsm/kg (285-295) 05/22/25 19:23 Calcium 9.3 mg/dL (8.5-10.5) 05/22/25 19:23 Total Bilirubin 0.6 mg/dL (0.15-1.2) 05/22/25 19:23 AST 20 U/L (0-40) 05/22/25 19:23 ALT 22 U/L (0-41) 05/22/25 19:23 Alkaline Phosphatase 118 U/L (40-130) 05/22/25 19:23 Total Protein 7.1 g/dL (6.6-8.7) 05/22/25 19:23 Albumin 4.3 g/dL (3.5-5.2) 05/22/25 19:23 Globulin 2.8 g/dL (1.3-4.6) 05/22/25 19:23 Urine Color Yellow (Yellow) 05/22/25 20:43 Urine Appearance Clear (CLEAR) 05/22/25 20:43 Urine pH 6.5 (5-7) 05/22/25 20:43 Ur Specific Crawford 1.021 (1.005-1.030) 05/22/25 20:43 Urine Protein Negative (Negative) 05/22/25 20:43 Urine Glucose (UA) Negative (Normal) 05/22/25 20:43 Urine Ketones Negative (Negative) 05/22/25 20:43 Urine Blood Negative (Negative) 05/22/25 20:43 Urine Nitrate Negative (Negative) 05/22/25 20:43 Urine Bilirubin Negative (Negative) 05/22/25 20:43 Urine Urobilinogen 1.0 mg/dL (Negative) 05/22/25 20:43 Ur Leukocyte Esterase Negative (Negative) 05/22/25 20:43 Urine RBC 0-2 /hpf (0-2) 05/22/25 20:43 Urine WBC 0-5 /hpf (0-5) 05/22/25 20:43 Ur Squamous Epith Cells 0-5 /hpf (0-5) 05/22/25 20:43 Amorphous Sediment Not Reportable 05/22/25 20:43 Urine Bacteria None seen /hpf (NONE) 05/22/25 20:43 Hyaline Casts 0.81 /lpf 05/22/25 20:43 Urine Opiates Screen Negative ng/mL (Negative) 05/22/25 20:43 Ur Barbiturates Screen Negative ng/mL (Negative) 05/22/25 20:43 Ur Phencyclidine Scrn Negative ng/mL (Negative) 05/22/25 20:43 Ur Amphetamines Screen Negative ng/mL (Negative) 05/22/25 20:43 U Benzodiazepines Scrn Negative ng/mL (Negative) 05/22/25 20:43 Urine Cocaine Screen Negative ng/mL (Negative) 05/22/25 20:43 U Marijuana (THC) Screen Negative ng/mL (Negative) 05/22/25 20:43 All radiology interpretation(s) finalized by discharge EKG Data EKG 1: Computer generated interpretation: EKG timed 1720, read 1724. Sinus rhythm rate 60. Borderline left axis. First- degree AV block, TN 245. QTc 456. No ST-T wave change Critical Care Time 2 Critical Care Time: Critical Care Time: Yes Total Critical Care Time: 40 Attestation: This case had a high probability of a clinically significant, sudden, or life threatening deterioration of this patient's condition which required my full and direct attention, intervention and personal management. Time is independent of any procedures performed. Discharge Plan Discharge Patient Disposition: Placed in Observation Admit Provider: Truman Araiza Clinical Impression: Acute CVA (cerebrovascular accident) Coding Level of Care Code ED Real Time Analyst for Janna Sandoval
--- NOTE | 2025-05-22 20:45 | PC.NURSE ---
Addendum entered by Danielle Woody RN 05/22/25 20:47: pt is reporting seeing objects on the ceiling move slowly back and forth. unsure if this was happening prior to tnkase administration. speech is improved with less stuttering. Original Note: nystagmus still present
[2025-05-22 21:08] LABS: Glucose Urine UA Negative (Normal); Nitrate Urine Negative (Negative); Specific Gravity, Urine 1.021 (1.005-1.030)
[2025-05-22 21:13] LABS: Add Urine Microscopic? YES
[2025-05-22 21:18] LABS: PCP Screen Urine Negative (Negative)
--- NOTE | 2025-05-22 23:56 | PM.HP ---
Providers/Chief Complaint Admitting Physician: Truman Araiza MD Primary Care Provider: Rebecca Taylor MD Chief Complaint: dizzy and weak History of Present Illness Montez Garrett is a 80 year old male with history significant for prior CVA with right hearing deficits, CAD, HTN, and HLD, who presented with complaints of dizziness. He states at about 7pm on the evening of presentation, he was sitting at his computer when he stood up and became very dizzy and says everything started spinning. He does mention he has had vetigo in the past but the current complaint was much worse than his prior episodes. He had similar issues with his prior stroke and due to this, he felt he should come to the ED for further evalutation. Medications/Allergies Home Medications ?Medication ?Instructions ?Recorded ?Confirmed ?Last Taken ?Type cholecalciferol (vitamin D3) 50 4,000 unit PO QAM 06/01/22 05/22/25 08/24/22 History mcg (2,000 unit) capsule (Vitamin D3) lisinopril 20 2 tab PO QAM 06/01/22 05/22/25 08/24/22 History mg-hydrochlorothiazide 12.5 mg tablet omeprazole magnesium 20 mg 20 mg PO DAILY 01/30/23 05/22/25 Unknown History tablet,delayed release sucralfate 1 gram tablet 1 g PO Q6H 01/30/23 05/22/25 Unknown History atorvastatin 40 mg tablet (Lipitor) 40 mg PO DAILY #30 tabs 05/03/23 05/22/25 Unknown Rx Allergies Allergy/AdvReac Type Severity Reaction Status Date / Time No Known Allergies Allergy Verified 05/22/25 19:25 PFSH Acute PFSH: Medical History (Updated 05/22/25 @ 22:59 by Ayan Paige DO) Hypertension Duodenal ulcer Internal hemorrhoids GERD (gastroesophageal reflux disease) Lower urinary tract symptoms (LUTS) Elevated prostate specific antigen [PSA] Surgical History History of appendectomy Family History Mother , at age 84 Alzheimer disease Depression Father , at age 74 Acute leukemia Social History Smoking and tobacco/nicotine status: current every day tobacco/nicotine user smokeless tobacco Smokeless tobacco user: chewing tobacco Alcohol intake: never Adopted: No Lives independently: Yes Marital status: service: Yes Current occupational status: retired Previous occupational history: [employer] Vitals/I&O/Wt Last Vital Signs Temp 97.8 F 05/22/25 22:11 Pulse 64 05/22/25 23:38 Resp 13 05/22/25 23:11 BP 106/60 05/22/25 23:11 Pulse Ox 95 05/22/25 22:45 O2 Del Method Room Air 05/22/25 22:21 Weight last 48 hrs Weight 81.193 kg Weight 75.92 kg Physical Exam Narrative: General: No acute distress, AO x3 HEENT: PERRLA, pupils bilaterally equal and reactive Chest: Normal vesicular breath sounds, no added sounds, equal good air entry bilaterally CVS: S1-S2 regular, no murmurs, no tachycardia, no gallops, no rubs Abdomen: Soft, nontender, no organomegaly, bowel sounds present Neuro: No focal deficits, no facial deformity, AO x3, power 5/5 in all limbs Data 05/22/25 19:23 05/22/25 19:23 A&P Assessment and plan 1. Acute CVA (cerebrovascular accident): - Likely posterior circulation involvement - Neurology aware of the patient. Evaluated remotely in the ED - S/p TNK today @ 2024 - Hold antiplatelet and anticoagulants for now - CT head without contrast tomorrow at 0900 - Admit to ICU for monitoring - Continue home lisinopril-HCTZ - Maintina BP <108/105 - Check echocardiogram - Continue home statin - Update lipid panel 2. Dyslipidemia: - as above 3. Hypertension: - As above PDMP PDMP Reviewed: Not Reviewed Attestations Medical Necessity Statement*: patient is anticipated to require greater than two midnights for evaluation and management of CVA s/p TNK administration Coding Level of Care Code Acute Code for [facility] Fwd Diagnoses Acute CVA (cerebrovascular accident) I63.9 Dyslipidemia E78.5 Hypertension I10
[2025-05-23] VITALS (20 sets, daily range): BP systolic 103–139; BP diastolic 52–88; PULSE 45–68; RESP 13–20; TEMP 36.3–36.8; O2SAT 93–95
[2025-05-23 05:24] LABS: Cholesterol 90 mg/dL (0-200); HDL Cholesterol 34 mg/dL (60-100); Triglycerides 87 mg/dL (0-150)
--- NOTE | 2025-05-23 09:00 | CTR_ITS ---
PROCEDURE INFORMATION: Exam: CT Head Without Contrast Exam date and time: 05/23/2025 9:17 AM Age: 80 years old Clinical indication: Other: Acute stroke, status post-tnk TECHNIQUE: Imaging protocol: Computed tomography of the head without contrast. Radiation optimization: All CT scans at this facility use at least one of these dose optimization techniques: automated exposure control; mA and/or kV adjustment per patient size (includes targeted exams where dose is matched to clinical indication); or iterative reconstruction. COMPARISON: CT head thrombolytic [id number] 05/22/2025 7:39 PM RADIATION DOSE METRICS: Total DLP (mGy-cm): 1081.78 FINDINGS: Brain: There is no mass effect, midline shift hockey hemorrhage, extra-axial fluid collection or acute lobar infarct. Cerebral ventricles: No ventriculomegaly. Paranasal sinuses: Visualized sinuses are unremarkable. No fluid levels. Mastoid air cells: Visualized mastoid air cells are well aerated. Bones: Unremarkable. No acute fracture. Soft tissues: Unremarkable. CT/CT head wo con* [id number] IMPRESSION: No acute intracranial process.
--- NOTE | 2025-05-23 09:20 | PM.SAN ---
Stroke Alert Activation ED Arrival Date: 05/22/25 ED Arrival Time: 19:21 ED Physican at Bedside: 19:21 Last Known Normal/at Baseline: < 1 hour ago Other Last Known Well Infomation: old records briefly reviewed. Previous [facility]ICA stroke with right hearing loss and ataxia, largely resolved and reportedly confirmed by MRI (record not avail) but no symptoms since last event. Sudden onset vertigo and ataxia 45 minutes prior to evaluation. Seen initially by Dr. Paige, who presented patient by phone, then assisted in exam via tele. Patient observed to have severe right sided nystagmus and unable to ambulate without assist due to midline ataxia. Patient agreed to thrombolytic therapy. Stroke Alert Activated by: triage Stroke Alert Activation Date: 05/22/25 Stroke Alert Activation Time: 19:59 Stroke MD @ Bedside Date: 05/22/25 Stroke MD @ Bedside Time: 20:13 NIH Stroke Scale Time: 20:14 NIH stroke score NIHSS: Level Of Consciousness - 1a: 0 Level Of Consciousness Questions - 1b: Both Correct Level Of Consciousness Commands - 1c: Both Correct Best Gaze - 2: Partial Gaze Palsy (nystagmus on right gaze) Visual Lucia - 3: No Visual Loss Facial Palsy - 4: Normal Motor Arm Right - 5: No Drift Motor Arm Left - 5: No Drift Motor Leg Right - 6: No Drift Motor Leg Left - 6: No Drift Limb Ataxia - 7: Present In One Limb (midline ataxia) Sensory - 8: Normal Best Language - 9: No Aphasia Dysarthia - 10: Mild/Moderate Dysarthia Extinction And Inattention - 11: 0 Score: Total Score: 3 Stroke Alert Data/Treatment Time to CT of Head: 19:59 CT Results Date: 05/22/25 CT Results Time: 20:00 CT Impression: normal Stroke Risk Factors: hypertension tPA Started Date: 05/22/25 tPA Started Time: tPA Started - Time: 20:25 tPA Admin Prior to Arrival: No Patient & Family Educated on: Treament Plan and tPA Risks/Benefits Standardized Stroke Orders Used: Yes Other Information: delay in thrombolytic therapy while reviewing patient chart, complex presentation with difficult decision whether thrombolytic indicated. His NIHSS was low but with dysarthria, dizziness and gait difficulty we agreed that treatment was indicated and patient agreed. Critical Care Time Critical Care Time: 30 - 74 mins A&P Assessment and plan 1. Posterior circulation stroke of uncertain pathology: He presents with onset less than an hour of vertigo with ataxia and right sided nystagmus, previous AICA stroke resolved. Based upon likelihood of serious neurologic deficit we agreed that TNK was indicated and patient agreed. Plan admit ICU and continue Plavix, aspirin and atorvastatin. Resume antiplatelet treatment in 24 hours from thrombolytic treatment. MRI OUTPATIENT after discharge and I am scheduled to see the patient in my office in about 10 days. PT,OT and speech evaluation. He can go home when he can walk with a walker. His CT head this morning (05/23) is normal with no sign of hemorrhage. 2. Hypertension: PDMP PDMP Reviewed: Not Reviewed Coding Level of Care Code Acute Code for [facility] Diagnoses Posterior circulation stroke of uncertain pathology I63.539 Hypertension I10
--- NOTE | 2025-05-23 12:27 | P.DS_ITS ---
Discharge Providers Date of Admission: 05/22/25 22:15 Date of Discharge: May 23, 2025 Attending Provider at Admission: Truman Araiza MD Attending Provider at Discharge: Alfred Arvizu MD Primary Care Provider: Rebecca Taylor MD Diagnoses at Discharge Discharge Diagnosis 1. Posterior circulation stroke of uncertain pathology: 2. Hypertension: Reason for Visit Reason for Visit: dizzy and weak Discharge Data Studies Completed and Pending Completed Studies During Hospitalization Category Date Time Status CT head thrombolytic 70240 Stat Cat Scan 05/22/25 19:[address] head wo con* [id number] Routine Cat Scan 05/23/25 09:00 Completed Pending at discharge Category Date Time Status CV. echo complete* [id number] Routine Ultrasound 05/23/25 22:19 Taken Radiology Impressions Head CT 05/23/25 09:00 IMPRESSION: No acute intracranial process. Laboratory Results WBC 8.94 10^3/uL (3.29-11.43) 05/22/25 19:23 RBC 5.04 10^6/uL (3.85-5.65) 05/22/25 19:23 Hgb 16.20 g/dL (11.27-16.99) 05/22/25 19:23 Hct 48.1 % (37-53) 05/22/25 19:23 MCV 95.4 fl (82-101) 05/22/25 19:23 MCH 32.1 pg (27-33) 05/22/25 19:23 MCHC 33.7 g/dL (30-55) 05/22/25 19:23 RDW 13.3 % (12.1-15.1) 05/22/25 19:23 Plt Count 238 10^3/cmm (157-399) 05/22/25 19:23 MPV 10.1 fL (7.4-10.4) 05/22/25 19:23 Neut % (Auto) 49.6 % 05/22/25 19:23 Lymph % (Auto) 38.1 % 05/22/25 19:23 Cotton % (Auto) 8.5 % 05/22/25 19:23 Eos % (Auto) 2.5 % 05/22/25 19:23 Baso % (Auto) 0.6 % 05/22/25 19:23 Neut # (Auto) 4.44 10^3/uL (1.8-7.7) 05/22/25 19:23 Lymph # (Auto) 3.4 10^3/uL (0.8-4.8) 05/22/25 19:23 Cotton # (Auto) 0.8 10^3/uL (0.2-0.9) 05/22/25 19:23 Eos # (Auto) 0.2 10^3/uL (0.0-0.8) 05/22/25 19:23 Baso # (Auto) 0.1 10^3/uL (0.0-0.1) 05/22/25 19:23 Nucleated RBC % (auto) 0 % 05/22/25 19:23 Nucleated RBCs # 0.0 /100WBC 05/22/25 19:23 PT 14.00 SECONDS (12.1-14.9) 05/22/25 19:23 INR 1.01 (0.8-1.2) 05/22/25 19:23 APTT 26.4 SECONDS (23.9-36.7) 05/22/25 19:23 Sodium 141 mmol/L (136-145) 05/22/25 19:23 Potassium 3.1 mmol/L (3.5-5.1) L 05/22/25 19:23 Chloride 103 mmol/L (98-107) 05/22/25 19:23 Carbon Dioxide 26 mmol/L (22-29) 05/22/25 19:23 Anion Gap 15.1 (5-19) 05/22/25 19:23 BUN 15 mg/dL (8-23) 05/22/25 19:23 Creatinine 0.9 mg/dL (0.7-1.2) 05/22/25 19:23 GFR Calculation Not Reportable 05/22/25 19:23 Glucose 110 mg/dL (65-115) 05/22/25 19:23 POC Glucose 102 mg/dL (70-110) 05/22/25 19:17 Calculated Osmolality 293 mOsm/kg (285-295) 05/22/25 19:23 Calcium 9.3 mg/dL (8.5-10.5) 05/22/25 19:23 Total Bilirubin 0.6 mg/dL (0.15-1.2) 05/22/25 19:23 AST 20 U/L (0-40) 05/22/25 19:23 ALT 22 U/L (0-41) 05/22/25 19:23 Alkaline Phosphatase 118 U/L (40-130) 05/22/25 19:23 Total Protein 7.1 g/dL (6.6-8.7) 05/22/25 19:23 Albumin 4.3 g/dL (3.5-5.2) 05/22/25 19:23 Globulin 2.8 g/dL (1.3-4.6) 05/22/25 19:23 Triglycerides 87 mg/dL (0-150) 05/23/25 05:03 Cholesterol 90 mg/dL (0-200) 05/23/25 05:03 LDL Cholesterol, Calc 39 mg/dL (50-129) L 05/23/25 05:03 HDL Cholesterol 34 mg/dL (60-100) L 05/23/25 05:03 LDL/HDL Ratio 1.15 RATIO (0.00-3.22) 05/23/25 05:03 Cholesterol/HDL Ratio 2.65 mg/dL (1.0-5.00) 05/23/25 05:03 Urine Color Yellow (Yellow) 05/22/25 20:43 Urine Appearance Clear (CLEAR) 05/22/25 20:43 Urine pH 6.5 (5-7) 05/22/25 20:43 Ur Specific [place] 1.021 (1.005-1.030) 05/22/25 20:43 Urine Protein Negative (Negative) 05/22/25 20:43 Urine Glucose (UA) Negative (Normal) 05/22/25 20:43 Urine Ketones Negative (Negative) 05/22/25 20:43 Urine Blood Negative (Negative) 05/22/25 20:43 Urine Nitrate Negative (Negative) 05/22/25 20:43 Urine Bilirubin Negative (Negative) 05/22/25 20:43 Urine Urobilinogen 1.0 mg/dL (Negative) 05/22/25 20:43 Ur Leukocyte Esterase Negative (Negative) 05/22/25 20:43 Urine RBC 0-2 /hpf (0-2) 05/22/25 20:43 Urine WBC 0-5 /hpf (0-5) 05/22/25 20:43 Ur Squamous Epith Cells 0-5 /hpf (0-5) 05/22/25 20:43 Amorphous Sediment Not Reportable 05/22/25 20:43 Urine Bacteria None seen /hpf (NONE) 05/22/25 20:43 Hyaline Casts 0.81 /lpf 05/22/25 20:43 Urine Opiates Screen Negative ng/mL (Negative) 05/22/25 20:43 Ur Barbiturates Screen Negative ng/mL (Negative) 05/22/25 20:43 Ur Phencyclidine Scrn Negative ng/mL (Negative) 05/22/25 20:43 Ur Amphetamines Screen Negative ng/mL (Negative) 05/22/25 20:43 U Benzodiazepines Scrn Negative ng/mL (Negative) 05/22/25 20:43 Urine Cocaine Screen Negative ng/mL (Negative) 05/22/25 20:43 U Marijuana (THC) Screen Negative ng/mL (Negative) 05/22/25 20:43 Vitals Last Vital Signs Temp 98.1 F 05/23/25 01:11 Pulse 54 L 05/23/25 08:00 Resp 14 05/23/25 08:00 BP 125/65 05/23/25 08:00 Pulse Ox 95 05/22/25 22:45 O2 Del Method Room Air 05/22/25 22:21 Discharge Plan Discharge Patient Disposition: Home Condition: Serious Prescriptions: New clopidogrel [Plavix] 75 mg tablet 75 mg PO DAILY Qty: 30 1RF aspirin 81 mg capsule 81 mg PO DAILY Qty: 100 0RF Continued omeprazole magnesium 20 mg tablet,delayed release (DR/EC) 20 mg PO DAILY sucralfate 1 gram tablet 1 g PO Q6H atorvastatin [Lipitor] 40 mg tablet 40 mg PO DAILY Qty: 30 5RF lisinopril-hydrochlorothiazide 20-12.5 mg Tablet 2 tab PO QAM cholecalciferol (vitamin D3) [Vitamin D3] 50 mcg (2,000 unit) Capsule 4,000 unit PO QAM Contracting Support Specialist OK for DC: Neurology Discharge Order = DC NOW: Discharge Order (Routine); Ordered 05/23/25 Ordered By: Alfred Arvizu Referrals: Rebecca Taylor MD [Primary Care Provider, Family Practice] Discharge Diet: Cardiac Discharge Activity: Resume usual activity and Increase activity as tolerated Patient Instructions: Opioid Safety, Patient Portal & Jean-Pierre Instructions Activity Restrictions/Additional Instructions: Follow up with the neurologist as directed. Discharge Attestations Status at Discharge: Cognitive status at discharge: cognitively intact , Behavioral status at discharge: cooperative , Coding Level of Care Code Acute Code for g Fwd Diagnoses Posterior circulation stroke of uncertain pathology I63.539 Hypertension I10
--- NOTE | 2025-05-23 13:03 | PM.PN ---
Subjective Subjective: Patient is seen this morning in the ICU. He is an 80-year-old male who was admitted because of apparent cerebellar symptoms, found to have posterior circulation stroke. Currently, he reports remarkable resolution of symptoms. He had thrombolytic therapy, TNKase, last night, as ordered by the neurologist. He has no new complaints. Vitals/I&O/Wt Last Vital Signs Temp 98.1 F 05/23/25 01:11 Pulse 54 L 05/23/25 08:00 Resp 14 05/23/25 08:00 BP 125/65 05/23/25 08:00 Pulse Ox 95 05/22/25 22:45 O2 Del Method Room Air 05/22/25 22:21 05/22/25 05/23/25 05/23/25 22:59 06:59 14:59 Intake Total 120 / 120 Output Total 1150 / 1150 Balance -1150 / -1150 120 / 120 Weight last 48 hrs Weight 81.193 kg Weight 81.193 kg Weight 75.92 kg Physical Exam Narrative: General: Awake and alert. Cooperative. Neuro: Cranial nerves II to XII grossly intact. No obvious cerebellar signs. No focal deficits appreciated. Chest/Resp: Normal respiratory chest movts; no obvious respiratory distress. CVS: Bradycardic, with heart rate in the mid 50s. Otherwise, regular rhythm. GI: Non-distended; No obvious organomegaly. Extremities: No obvious pitting pedal edema. Skin: No obvious new rashes or new skin lesions. Data 05/22/25 19:23 05/22/25 19:23 CT Head: Radiologist's impression: FINDINGS: Brain: There is no mass effect, midline shift hockey hemorrhage, extra-axial fluid collection or acute lobar infarct. Cerebral ventricles: No ventriculomegaly. Paranasal sinuses: Visualized sinuses are unremarkable. No fluid levels. Mastoid air cells: Visualized mastoid air cells are well aerated. Bones: Unremarkable. No acute fracture. Soft tissues: Unremarkable. IMPRESSION: No acute intracranial process. A&P Assessment and plan 1. Posterior circulation stroke of uncertain pathology: 2. Carotid artery stenosis, asymptomatic: 3. Sinus bradycardia: 4. Hypertension: Plan: Currently stable/asymptomatic patient. Given this, I had gone ahead and discharged the patient earlier today. However, I then got called by the neurologist who informed me that the patient had TNKase less than 24 hours away, and needs to be observed at least 24 hours after. Consequently, the discharge was canceled, patient transferred to the medical floor for continued observation. Anticipate discharge tomorrow. PDMP PDMP Reviewed: Not Reviewed Attestations Medical Necessity Statement*: Patient admitted for apparent severe clinical condition, as outlined in the Assessment & Plan section above. Patient will need up to 2 midnight stay, estimated, at least, to adequately and appropriately treat and optimally control above-named clinical conditions,. Coding Level of Care Code Acute Code for [facility] Fwd Diagnoses Posterior circulation stroke of uncertain pathology I63.539 Carotid artery stenosis, asymptomatic I65.29 Sinus bradycardia R00.1 Hypertension I10
--- NOTE | 2025-05-23 22:19 | USCV_ITS ---
Montez Garrett Age: 80 Gender: M : 1945 Exam Date: 05/23/2025 08:08 Ordering Phys: Truman Araiza MD Technologist: Donis Hernandez Exam Location: [facility] [place] Indication: acute stroke BP: 139 / 66 HR: 52 Rhythm: Sinus Technical Quality: Adequate MEASUREMENTS (Male / Female) Normal Values 2D ECHO LV Diastolic Diameter PLAX 4.0 cm 4.2 - 5.9 / 3.9 - 5.3 cm IVS Diastolic Thickness 0.9 cm 0.6 - 1.0 / 0.6 - 0.9 cm IVS Systolic Thickness 1.0 cm LVPW Diastolic Thickness 0.7 cm 0.6 - 1.0 / 0.6 - 0.9 cm LVPW Systolic Thickness 1.5 cm LVOT Diameter 2.0 cm LV Ejection Fraction 2D Teich 68.2 % LV Ejection Fraction MOD 4C 73.7 % LV Ejection Fraction MOD 2C 61.2 % LV Ejection Fraction 2C AL 62.3 % LA Diameter 4.8 cm RA Systolic Volume 4C AL 38.0 ml RA Systolic Volume 4C MOD 38.1 ml LA Sys Volume AL 45.4 cm cubed LA Sys Volume Index AL 22.5 cm cubed/m squared Aorta at Sinotubular Diameter 2.3 cm M-MODE LA Ao Ratio MM 1.5 AV Cusp Separation MM 1.6 cm DOPPLER AV Peak Velocity 131.0 cm/s LVOT Peak Velocity 113.0 cm/s AV Area Cont Eq vti 2.5 cm squared AV Area Cont Eq pk 2.7 cm squared MV Peak Velocity 126.0 cm/s MV Area PHT 3.5 cm squared Mitral E to A Ratio 0.6 TV Peak Velocity 253.5 cm/s TR Peak Velocity 257.0 cm/s TR Peak Gradient 26.4 mmHg TR Mean Velocity 217.0 cm/s TR Mean Gradient 19.4 mmHg TR Velocity Time Integral 75.3 cm PV Peak Velocity 88.0 cm/s RV Ejection Time 0.3 s FINDINGS Left Ventricle Normal left ventricular size, systolic function and wall thickness, with no regional wall motion abnormalities. Left ventricular ejection fraction is estimated at 60 %. Grade I/IV diastolic dysfunction (abnormal relaxation filling pattern), normal to mildly elevated filling pressures. Right Ventricle Normal right ventricular size and systolic function. Right Atrium Normal right atrial size. Left Atrium Normal left atrial size. IA Septum Normal appearance of the interatrial septum. Mitral Valve Severely thickened mitral valve. Severe mitral annular calcification. No mitral valve stenosis. Mild mitral valve regurgitation. Aortic Valve Normal aortic valve structure. No aortic valve stenosis or regurgitation. Tricuspid Valve Mild tricuspid valve regurgitation. Pulmonic Valve Trace pulmonary valve regurgitation. Pericardium No pericardial effusion. Aorta Normal diameter of the aortic root and ascending thoracic aorta. IVC Normal IVC diameter. CONCLUSIONS Normal left ventricular size, systolic function and wall thickness, with no regional wall motion abnormalities. Left ventricular ejection fraction is estimated at 60 %. Grade I/IV diastolic dysfunction (abnormal relaxation filling pattern), normal to mildly elevated filling pressures. Severely thickened mitral valve. Severe mitral annular calcification. No mitral valve stenosis. Mild mitral valve regurgitation. Normal aortic valve structure. No aortic valve stenosis or regurgitation There is no pericardial effusion. Right atrial pressure is around 5 mm of mercury. Kal Cruz MD (Electronically Signed) Final Date: 23 May 2025 18:15 S
[2025-05-24] VITALS (8 sets, daily range): BP systolic 107–134; BP diastolic 53–71; PULSE 49–54; RESP 14–17; TEMP 36.5–36.9; O2SAT 93–95
[2025-05-24] MEDS: potassium chloride oral liq 20 mEq/15 mL UDC PO (09:59)
--- NOTE | 2025-05-24 10:15 | PM.DCS ---
Discharge Providers Date of Admission: 05/22/25 22:15 Date of Discharge: May 24, 2025 Attending Provider at Admission: Truman Araiza MD Attending Provider at Discharge: Alfred Arvizu MD Primary Care Provider: Rebecca Taylor MD Diagnoses at Discharge Discharge Diagnosis 1. Posterior circulation stroke of uncertain pathology: 2. Sinus bradycardia: 3. Carotid artery stenosis, asymptomatic: 4. Essential (primary) hypertension: Reason for Visit Reason for Visit: dizzy and weak Brief History: Patient presented with apparent ataxia, dizziness and giddiness, and found to have posterior circulation stroke. Neurologist was consulted, who started patient with TKNase x 1.. Thereafter, he was admitted Plan observe closely. He is antiplatelets, Plavix and aspirin, we held. Otherwise, he has essential hypertension was treated with home medications, as suggested.. Hospital Course Hospital Course Patient was observed for at least 24 hours after the IV thrombolytics. He remained stable, with no more symptoms. Of note, patient is noted to be bradycardic, which is his baseline, with heart rate in the mid-50s to 60s. So, given the consistently stable symptoms as at this morning, he is therefore discharged. I see my discharge orders and discharge instruction from star route mail driver. Physical Exam Narrative: General: Awake and alert patient. Resp: No obvious respiratory distress or difficulty breathing. Skin: No obvious rashes or new skin lesions. All other physical findings essentially within normal limits. Discharge Data Studies Completed and Pending Completed Studies During Hospitalization Category Date Time Status CT head thrombolytic 44133 Stat Cat Scan 05/22/25 19:[address] head wo con* [id number] Routine Cat Scan 05/23/25 09:00 Completed CV. echo complete* [id number] Routine Ultrasound 05/23/25 22:19 Completed Pending at discharge Category Date Time Status BMP [Basic Metabolic Panel] Routine Lab 05/24/25 08:46 Ordered Radiology Impressions Head CT 05/23/25 09:00 IMPRESSION: No acute intracranial process. Vitals Last Vital Signs Temp 98.0 F 05/24/25 08:24 Pulse 54 L 05/24/25 08:24 Resp 17 05/24/25 08:24 BP 127/62 05/24/25 08:24 Pulse Ox 95 05/24/25 07:39 O2 Del Method Room Air 05/24/25 07:39 Discharge Plan Discharge Patient Disposition: Home Condition: Stable Prescriptions: New clopidogrel [Plavix] 75 mg tablet 75 mg PO DAILY Qty: 30 1RF aspirin 81 mg capsule 81 mg PO DAILY Qty: 100 0RF Continued omeprazole magnesium 20 mg tablet,delayed release (DR/EC) 20 mg PO DAILY sucralfate 1 gram tablet 1 g PO Q6H atorvastatin [Lipitor] 40 mg tablet 40 mg PO DAILY Qty: 30 5RF lisinopril-hydrochlorothiazide 20-12.5 mg Tablet 2 tab PO QAM cholecalciferol (vitamin D3) [Vitamin D3] 50 mcg (2,000 unit) Capsule 4,000 unit PO QAM Custodian Supervisor OK for DC: Neurology Discharge Order = DC NOW: Discharge Order (Routine); Ordered 05/24/25 Ordered By: Alfred Arvizu Referrals: Rebecca Taylor MD [Primary Care Provider, [facility]] - 7-10 days Referral Note: Please call your provider and make a follow up appointment on sunday. Discharge Diet: Cardiac Discharge Activity: Resume usual activity, Increase activity as tolerated and Use walker/crutches as instructed Patient Instructions: Aspirin (By mouth), Clopidogrel (By mouth), Ischemic Stroke (DC), Opioid Safety, Patient Portal & Jean-Pierre Instructions Activity Restrictions/Additional Instructions: Follow up with the neurologist, Dr. Waldrop, as directed. Discharge Attestations Time Spent in Discharge Care*: less than 30 min Status at Discharge: Cognitive status at discharge: cognitively intact, Behavioral status at discharge: cooperative, Quality Metrics Clinical Quality Measures [ Cerebrovascular Accident { Contraindication to Antithrombotic: None; antithrombotic prescribed; Contraindication to Anticoagulation: None; anticoagulation prescribed; Contraindication to Statin: None; Statin prescribed; Reason stroke education not provided: Stroke education provided to patient;}] Coding Level of Care Code Acute Code for [facility] Fwd Diagnoses Posterior circulation stroke of uncertain pathology I63.539 Sinus bradycardia R00.1 Carotid artery stenosis, asymptomatic I65.29 Essential (primary) hypertension I10
[2025-05-24 10:52] LABS: Anion Gap 9.9 (5-19); Blood Urea Nitrogen 15 mg/dL (8-23); Calcium 9.5 mg/dL (8.5-10.5); Carbon Dioxide 30 mmol/L (22-29); Chloride 103 mmol/L (98-107); Glucose 96 mg/dL (65-115); Osmolality Calculated 289 mOsm/kg (285-295); Potassium 3.9 mmol/L (3.5-5.1); Sodium 139 mmol/L (136-145)
--- NOTE | 2025-05-24 13:37 | PC.NURSE ---
Discharge paperwork discussed with patient. All questions were answered. Both IV lines were removed. Patient dressed himself and met this nurse in the hallway, patient stated he had all his belongings. Patient ambulated to the elevator than rode in a wheelchair to entrance, escorted by this nurse. Patient left at 1215. Housekeeping was cleaning patient's room and found patient's hearing aid sausage wrapper and phone sausage wrapper. Patient was called and stated someone would be coming up to pick them up. Patient asked about receiving his plavix and aspirin today and in patient has not received medication and was educated that it was safe for him to take today.
== END 2025-05-24 12:15 | disposition home or self-care (01) | DRG 63 ==
LOC: ER 21:29 → ICU 21:57 → MEDSURG 05-23 15:28
PROVIDERS: Admitting Provider Family Medicine; Emergency Provider Emergency Medicine; PCP Family Medicine; Visit Provider Family Medicine
DX: I63.539 Cerebral infarction due to unspecified occlusion or stenosis of unspecified posterior cerebral artery (principal); I10 Essential (primary) hypertension; I69.398 Other sequelae of cerebral infarction; R26.0 Ataxic gait; R29.701 NIHSS score 1; I65.29 Occlusion and stenosis of unspecified carotid artery; I25.10 Atherosclerotic heart disease of native coronary artery without angina pectoris; E78.5 Hyperlipidemia, unspecified
CPT/HCPCS: 36415; 36416; 70450; 80048; 80053; 80061; 80306; 81001; 82962; 85025; 85610; 85730; 92523; 92610; 93005; 93306; 96374; 97162; 97165; 99285; J3101; J9999

== ENCOUNTER → 2025-06-04 14:01 | Outpatient (BNVA) | payer OTHER, SELFPAY | PROVIDERS: PCP Family Medicine; Referring Provider Family Medicine; Visit Provider Specialist | DX: I63.539 Cerebral infarction due to unspecified occlusion or stenosis of unspecified posterior cerebral artery (principal); I10 Essential (primary) hypertension | CPT/HCPCS: 99205 ==